=== PATIENT | female | born 1970 | race Caucasian/White ===

== ENCOUNTER 2017-01-01 22:15 | Inpatient (IN) | payer SELFPAY ==
[2017-01-01 22:38] VITALS: BMI 35.5
[2017-01-01] MEDS ORDERED: SODIUM CHLORIDE 1,000 ML IV STA (22:59)
[2017-01-01] MEDS ORDERED: PANTOPRAZOLE SODIUM 80 MG in SODIUM CHLORIDE 100 ML IVPB SCH (23:00)
--- NOTE | 2017-01-01 23:01 | PDOC ---
History of Present Illness - General Chief Complaint: Nausea/Vomiting Stated Complaint: VOMITING BLOOD Time Seen by Provider: 01/01/17 22:53 History Source: Patient, Family, Dry Wall Sprayer Used Exam Limitations: Language Barrier - History of Present Illness Travel History: No Initial Comments: 01/01/17 23:32 46yo Female patient vincentian speaking only w/ PmHx: Migraine presents to ED c/o abd pain, and vomiting blood. Patient states having epigastric abdominal pain x 1 week, which progressed to vomiting blood. Patient states she has been taking Butalbital/Acetaminophen for migraine h/a. Patient denies excessive alcohol or ibuprofen, or ASA use. She denies any other complaints. Timing/Duration: reports: getting worse Quality: reports: moderate Abdominal Pain Onset Location: reports: epigastric Pain Radiation: denies: no radiation, RUQ, LUQ, RLQ, LLQ, epigastric, periumbilical, flank, groin, scapula, shoulder, chest, back, other Activities at Onset: reports: no specific activity Treatment Prior to Arrive: worse with: analgesics, antacids, cold pack, heat, laxative, enema, other Aggravating Factors: worse with: None, Defecation, Eating, Emotional upset, Exertion, [place], Movement, Voiding, Change in position Alleviating Factors: worse with: None, Belching, Shallow Breathing, Defecation, Eating, Holding Breath, Passing Gas, Change in Position, Rest, Voiding, Vomiting Past History - Travel Traveled outside of the country in the last 30 days: No Close contact w/someone who was outside of country & ill: No - Past Medical History Allergies/Adverse Reactions: Allergies Allergy/AdvReac Type Severity Reaction Status Date / Time No Known Allergies Allergy Verified 01/01/17 22:29 Home Medications: Ambulatory Orders Butalbital/Acetaminophen [Butalbital-Acetaminophn 50-325] 1 tab PO TID 01/02/17 Other medical history: migrain - Psycho/Social/Smoking Cessation Hx Anxiety: No Suicidal Ideation: No Smoking History: Never smoked Have you smoked in the past 12 months: No Information on smoking cessation initiated: No Hx Alcohol Use: No Drug/Substance Use Hx: No Substance Use Type: None Abd/GI Specific PMHX - Complaint Specific PMHX Colitis: No Diverticulitis: No Gall Bladder Disease: No GERD: No Hepatitis: No Irritable Bowel Synd (IBS): No Pancreatitis: No GI Ulcer Disease: No Review of Systems - Review of Systems Able to Perform ROS?: Yes Is the patient limited Luxembourgish proficient: No Constitutional: No: Chills, Fever Respiratory: No: Cough, Shortness of Breath, Stridor, Wheezing, Hemoptysis Cardiac (ROS): No: Chest Pain, Lightheadedness, Palpitations ABD/GI: Yes: Nausea, Vomiting, Other (Hematemesis and Moderate Abdominal Pain). No: Constipated, Diarrhea, Rectal Bleeding : No: Burning, Dysuria, Flank Pain, Hematuria Musculoskeletal: No: Back Pain Integumentary: No: Bruising, Erythema, Rash Neurological: No: Headache, Seizure, Ataxia, Dizziness All Other Systems: Reviewed and Negative *Physical Exam - Vital Signs Last Vital Signs Temp Pulse Resp BP Pulse Ox 99.2 F 126 H 19 134/97 100 01/01/17 22:25 01/01/17 22:25 01/01/17 22:25 01/01/17 22:25 01/01/17 22:25 - Physical Exam General Appearance: Yes: Nourished, Appropriately Dressed, Apparent Distress, Moderate Distress. No: Mild Distress, Severe Distress Neck: positive: Trachea midline, Normal Thyroid, Supple. negative: Stridor, Lymphadenopathy (R), Lymphadenopathy (L), Tender lateral, Tender midline Respiratory/Chest: positive: Lungs Clear, Normal Breath Sounds. negative: Chest Tender, Respiratory Distress, Accessory Muscle Use, Labored Respiration, Rapid RR, Stridor, Wheezing Cardiovascular: positive: Regular Rhythm, Regular Rate Gastrointestinal/Abdominal: positive: Tender, Soft, Increased Bowel Sounds, Guarding, Rebound, Tenderness (Epigastric pain), Other (Large Abdomen.). negative: Distended Musculoskeletal: positive: Normal Inspection. negative: CVA Tenderness Extremity: positive: Normal Capillary Refill, Normal Inspection, Normal Range of Motion. negative: Pedal Edema, Swelling, Calf Tenderness, Erythema, Inflammation Integumentary: positive: Normal Color, Dry, Warm. 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
[2017-01-01] MEDS ORDERED: METOCLOPRAMIDE HCL INJECTION 10 MG/2 ML VIAL IVPB ONE (23:22)
[2017-01-01] MEDS ORDERED: morphine CARPU-JECT 4 MG/1 ML DISP.SYRIN IVPUSH ONE (23:23)
[2017-01-01] MEDS ORDERED: PANTOPRAZOLE SODIUM 100 ML IVPB ONE (23:23)
[2017-01-01 23:26] LABS: EOSINOPHIL 0.6 % (0-4.5); MCHC 32.6 g/dl (32.0-36.0); MEAN CELL VOLUME 85.9 fl (80-96); MEAN PLT VOLUME 7.7 fl (7.5-11.1); PLATELET COUNT 466 K/MM3 (134-434); RDW 17.8 % (11.6-15.6); WHITE BLOOD COUNT 12.8 K/mm3 (4.0-10.0)
[2017-01-01] MEDS ORDERED: morphine CARPU-JECT 4 MG/1 ML DISP.SYRIN ONE (23:32)
[2017-01-01] MEDS ORDERED: METOCLOPRAMIDE HCL INJECTION 10 MG/2 ML VIAL ONE (23:32)
[2017-01-01 23:37] LABS: INR 1.27 (0.82-1.09)
[2017-01-01 23:39] LABS: ACTIVATED PTT 33.4 SECONDS (26.9-34.4)
[2017-01-01 23:49] LABS: ALBUMIN 4.3 g/dl (3.4-5.0); ANION GAP 13 (8-16); BILIRUBIN,DIRECT 0.1 mg/dL (0.0-0.2); BILIRUBIN,TOTAL 0.5 mg/dL (0.2-1.0); CALCIUM 10.8 mg/dL (8.5-10.1); CO2 23 mmol/L (21-32); CREATININE 0.8 mg/dL (0.55-1.02); GLUCOSE,RANDOM 114 mg/dL (74-106); SGOT/AST 14 U/L (15-37); SGPT/ALT 18 U/L (12-78); TOT PROT 7.9 g/dl (6.4-8.2); TROPONIN I < 0.02 ng/ml (0.00-0.05)
[2017-01-01 23:50] LABS: ALK PHOS 178 U/L (45-117)
[2017-01-02] MEDS ORDERED: PANTOPRAZOLE SODIUM 80 MG in SODIUM CHLORIDE 100 ML IVPB ONE (00:02)
[2017-01-02] MEDS ORDERED: PANTOPRAZOLE SODIUM 40 MG VIAL ONE (02:10)
[2017-01-02] MEDS ORDERED: PANTOPRAZOLE SODIUM 100 ML IVPB ONE (02:10)
--- NOTE | 2017-01-02 03:28 | HP ---
CHIEF COMPLAINT: abd pain/vomiting blood PCP: Baldemar Foreman HISTORY OF PRESENT ILLNESS: This is a 46 year old female with a past medical history of migraines who presented to the emergency department with abdominal pain and vomiting "blood". Pt reports she has been having epigastric and supraumbilical pain x 3 days with vomiting. Hematemesis started 2 days ago; initially bright red then darker. Pt states the only medication she has been taking recently is fiorecet for her migraines. She denies taking fiorinal or any medication containing nSAIDS or ASA. She denies diarrhea or constipation. ER course was notable for: (1) H/H 11.7/35.8 (2) U/S c/w gallstones, CT w/ gallstones, possible acute cholecystitis (3) Recent Travel: pt denies PAST MEDICAL HISTORY: migraines ? heart murmur PAST SURGICAL HISTORY: x 2 Social History: Smoking: pt denies Alcohol: pt denies Drugs: pt denies Family History: father with DM, HTN, Heart disease-PPM grandmother and aunt had BrCA mother alive and well 2 children alive and well Allergies No Known Allergies Allergy (Verified 01/01/17 22:29) HOME MEDICATIONS: 3 Medication Instructions Recorded Butalbital/Acetaminophen 1 tab PO TID 01/02/17 [Butalbital-Acetaminophn 50-325] REVIEW OF SYSTEMS CONSTITUTIONAL: Absent: fever, chills, diaphoresis, generalized weakness, malaise, loss of appetite, weight change HEENT: Absent: rhinorrhea, nasal congestion, throat pain, throat swelling, difficulty swallowing, mouth swelling, ear pain, eye pain, visual changes CARDIOVASCULAR: Absent: chest pain, syncope, palpitations, irregular heart rate, lightheadedness , peripheral edema RESPIRATORY: Absent: cough, shortness of breath, dyspnea with exertion, orthopnea, wheezing, stridor, hemoptysis GASTROINTESTINAL: Present: abdominal pain, nausea, vomiting Absent: abdominal distension, diarrhea, constipation, melena, hematochezia GENITOURINARY: Absent: dysuria, frequency, urgency, hesitancy, hematuria, flank pain, genital pain MUSCULOSKELETAL: Absent: myalgia, arthralgia, joint swelling, back pain, neck pain SKIN: Absent: rash, itching, pallor HEMATOLOGIC/IMMUNOLOGIC: Absent: easy bleeding, easy bruising, lymphadenopathy, frequent infections ENDOCRINE: Absent: unexplained weight gain, unexplained weight loss, heat intolerance, cold intolerance NEUROLOGIC: Present: headache Absent: focal weakness or paresthesias, dizziness, unsteady gait, seizure, mental status changes, bladder or bowel incontinence PSYCHIATRIC: Absent: anxiety, depression, suicidal or homicidal ideation, hallucinations. PHYSICAL EXAMINATION Vital Signs - 24 hr 3 01/01/17 22:25 Temperature 99.2 F Pulse Rate 126 H Respiratory 19 Rate Blood Pressure 134/97 O2 Sat by Pulse 100 Oximetry (%) GENERAL: Awake, alert, and fully oriented, in no acute distress. HEAD: Normal with no signs of trauma. EYES: Pupils equal, round and reactive to light, extraocular movements intact, sclera anicteric, conjunctiva clear. No lid lag. EARS, NOSE, THROAT: Ears normal, nares patent, oropharynx clear without exudates. Moist mucous membranes. NECK: Normal range of motion, supple without lymphadenopathy, JVD, or masses. LUNGS: Breath sounds equal, clear to auscultation bilaterally. No wheezes, and no crackles. No accessory muscle use. HEART: Regular rate and rhythm, normal S1 and S2 without rub or gallop. + murmur 2/6, loudest 5th ICS/LMCL ABDOMEN: Soft, not distended, normoactive bowel sounds, no guarding, no rebound , no masses. No hepatomegaly or splenomegaly. Tender to palpation epigastric region MUSCULOSKELETAL: Normal range of motion at all joints. No bony deformities or tenderness. No CVA tenderness. UPPER EXTREMITIES: 2+ pulses, warm, well-perfused. No cyanosis. No clubbing. No peripheral edema. LOWER EXTREMITIES: 2+ pulses, warm, well-perfused. No calf tenderness. No peripheral edema. NEUROLOGICAL: Cranial nerves II-XII intact. Normal speech. Normal gait. PSYCHIATRIC: Cooperative. Good eye contact. Appropriate mood and affect. SKIN: Warm, dry, normal turgor, no rashes or lesions noted, normal capillary refill. Laboratory Results - last 24 hr 3 01/01/17 01/01/17 01/01/17 01/02/17 23:00 23:11 23:11 00:05 WBC 12.8 H RBC 4.16 Hgb 11.7 Hct 35.8 MCV 85.9 MCHC 32.6 RDW 17.8 H Plt Count 466 H MPV 7.7 Neutrophils % 70.0 Lymphocytes % 22.1 Monocytes % 6.3 Eosinophils % 0.6 Basophils % 1.0 INR 1.27 H PTT (Actin FS) 33.4 Sodium 141 Potassium 3.3 L Chloride 105 Carbon Dioxide 23 Anion Gap 13 BUN 9 Creatinine 0.8 Random Glucose 114 H Lactic Acid 1.7 Calcium 10.8 H Total Bilirubin 0.5 Direct Bilirubin 0.1 AST 14 L ALT 18 Alkaline Phosphatase 178 H Creatine Kinase 83 Troponin I < 0.02 Total Protein 7.9 Albumin 4.3 Serum , Qual Negative Blood Type A POSITIVE Antibody Screen Negative Radiology Results Abdominal sonogram Images: 60 Clinical indication: Epigastric pain. This is a preliminary report by imaging person investigator Findings: The pancreas has a normal appearance and echotexture. The liver has a normal appearance and measures 16.4 cm in length. Hepatopetal flow is demonstrated in the main portal vein. Cholelithiasis is noted. There is no mural thickening or pericholecystic fluid. The right kidney has a normal appearance and echotexture measures 9.5 cm in length. No parenchymal mass, shadowing calculus or hydronephrosis is seen. Impression: Cholelithiasis. THIS DOCUMENT HAS BEEN ELECTRONICALLY SIGNED [place] M.D. 01/02/2017 00:[address] head Images: 171 Clinical indication: Severe headache. This is a preliminary report by imaging person investigator Findings: Multiple axial images were obtained of the brain without contrast. There is no mass-effect, midline shift or hemorrhage. There is no intra-axial or extra-axial fluid collection. The visualized portions of the paranasal sinuses are clear. The middle ear cavities and mastoids are clear. No calvarial fracture seen. Impression: No mass effect or intracranial hemorrhage. THIS DOCUMENT HAS BEEN ELECTRONICALLY SIGNED [place] Valentine M.D. 01/02/2017 02:[address] abdomen pelvis Images: 429 Clinical indication: Abdominal pain for 3 days. This is a preliminary report by imaging person investigator Findings: Pleural lipomatosis noted in the right posterior thorax. The lung bases are clear. The liver has a normal appearance. The gallbladder is distended to 4.8 cm in diameter. Cholelithiasis is noted. No pericholecystic inflammatory changes are seen. The spleen and pancreas have a normal appearance. The adrenal glands are unremarkable. A right renal hypodensity is noted in the lower pole. The kidneys otherwise enhance symmetrically. There is no evidence of urinary tract obstruction. The gastrointestinal tract does not appear obstructed. No thickened or dilated bowel is seen. The appendix has a normal appearance. There is no mesenteric infiltration. The uterus is anteverted. The right adnexa is unremarkable. An ovoid cystic hypodensity in the left adnexa demonstrates soft tissue attenuation likely a complex/ hemorrhagic cyst. The urinary bladder is nondistended. No abdominal or pelvic adenopathy is seen. No lytic or blastic destructive osseous lesions are seen. Impression: Markedly distended gallbladder. Cholelithiasis. Correlate for tenderness. Early cholecystitis can have this appearance. No other inflammatory process identified in the abdomen or pelvis. No abdominal mass, adenopathy or collection seen. THIS DOCUMENT HAS BEEN ELECTRONICALLY SIGNED [place] M.D. 01/02/2017 02:49 EST ASSESSMENT/PLAN: 46yF with PMH migraines and heart murmur presented to the ED with abdominal pain and hematemesis. She has been admitted for further evaluation. Hematemesis - Hgb 11.7, no previous baseline in system, cont to trend - GI consult - protonix IV daily - vomiting stopped s/p reglan - NPO for now, trial clears tomorrow if improved cholelithiasis - NPO for now, if pain improving, outpatient surgical workup, if not, inpatient consult - trend WBC DVT PPX - heparin deferred due to hematemesis FEN - NS @ 100cc/hr - potassium repleted in ED, repeat in am, check mag and phos - NPO for now, may have ice chips Dispo: Pt currently requires inpatient management of her emergent condition. Visit type - Emergency Visit Emergency Visit: Yes ED Registration Date: 01/01/17 Care time: The patient presented to the Emergency Department on the above date and was hospitalized for further evaluation of their emergent condition. - New Patient This patient is new to me today: Yes Date on this admission: 01/02/17 - Critical Care Critical Care patient: No
[2017-01-02] MEDS ORDERED: ONDANSETRON 4 MG/2 ML VIAL IVPB PRN (03:29)
[2017-01-02] MEDS ORDERED: SODIUM CHLORIDE 1,000 ML IV STA (03:55)
[2017-01-02] MEDS ORDERED: KCL 10 MEQ IVPB 100 ML IVPB SCH (04:00)
[2017-01-02] MEDS ORDERED: KCL 10 MEQ IVPB 100 ML IVPB ONE (04:02)
[2017-01-02] MEDS: morphine CARPU-JECT 4 MG/1 ML DISP.SYRIN IVPUSH PRN ×2 (05:57→10:16)
[2017-01-02] MEDS: SODIUM CHLORIDE 1,000 ML IV SCH ×2 (05:58→16:00)
[2017-01-02 09:02] LABS: BASOPHIL 0.6 % (0-2.0); EOSINOPHIL 1.9 % (0-4.5); MCH 28.8 pg (25.7-33.7); MCHC 32.9 g/dl (32.0-36.0); MEAN CELL VOLUME 87.6 fl (80-96); MEAN PLT VOLUME 7.5 fl (7.5-11.1); NEUTROPHILS 55.4 % (42.8-82.8); PLATELET COUNT 359 K/MM3 (134-434); RDW 18.5 % (11.6-15.6); WHITE BLOOD COUNT 11.1 K/mm3 (4.0-10.0)
[2017-01-02 09:27] LABS: ALBUMIN 3.5 g/dl (3.4-5.0); ANION GAP 9 (8-16); CALCIUM 9.9 mg/dL (8.5-10.1); CO2 25 mmol/L (21-32); CREATININE 0.6 mg/dL (0.55-1.02); GLUCOSE,RANDOM 82 mg/dL (74-106); PHOSPHOROUS 1.7 mg/dL (2.5-4.9); SGOT/AST 14 U/L (15-37); SGPT/ALT 15 U/L (12-78); TOT PROT 6.6 g/dl (6.4-8.2)
[2017-01-02 09:28] LABS: ALK PHOS 149 U/L (45-117); BILIRUBIN,TOTAL 0.5 mg/dL (0.2-1.0)
[2017-01-02] MEDS ORDERED: PANTOPRAZOLE SODIUM 40 MG in SODIUM CHLORIDE 100 ML IVPB SCH (10:00)
[2017-01-02] MEDS: PANTOPRAZOLE SODIUM 40 MG/100 ML PRE-DOCKED IVPB SCH (10:18)
[2017-01-02] MEDS ORDERED: POTASSIUM CHLORIDE TABS 20 MEQ TABLET.ER (FP) PO ONE (14:30)
[2017-01-02] MEDS ORDERED: POTASSIUM CHLORIDE TABS 20 MEQ TABLET.ER (FP) PO SCH (14:30)
--- NOTE | 2017-01-02 14:54 | EKG ---
Test Reason : Blood Pressure : / mmHG Vent. Rate : 109 BPM Atrial Rate : 109 BPM P-R Int : 132 ms QRS Dur : 076 ms QT Int : 328 ms P-R-T Axes : 064 053 041 degrees QTc Int : 441 ms POOR DATA QUALITY, INTERPRETATION MAY BE ADVERSELY AFFECTED SINUS TACHYCARDIA POSSIBLE LEFT ATRIAL ENLARGEMENT LEFT VENTRICULAR HYPERTROPHY ABNORMAL ECG NO PREVIOUS ECGS AVAILABLE Confirmed by TIM DAVIS, SAM ([id number]) on 01/02/2017 2:53:37 PM Referred By: Confirmed By:SAM DUMONT MD
[2017-01-02] MEDS: NAPH,MB-DB/K PH,MBDB POWDER PACKET PO SCH ×2 (15:20→21:12)
--- NOTE | 2017-01-02 15:29 | CON.GI ---
Consult Consult Specialty:: GI Referred by:: Dr Shanks Reason for Consultation:: Hematemesis - History of Present Illness Chief Complaint: hematemesis History of Present Illness: 46 F wiht h/o migraine taking Butalbitol/acetaminophen on a regular basis, now admitted with a h/o abdominal pain for 1 week culminating in hematemesis fror 2 days prior to the day of admission. She currently has a severe CHERRY. 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 ...: No - Alcohol/Substance Use Hx Alcohol Use: No - Smoking History Smoking history: Never smoked Have you smoked in the past 12 months: No Home Medications - Allergies Allergies/Adverse Reactions: Allergies Allergy/AdvReac Type Severity Reaction Status Date / Time No Known Allergies Allergy Verified 01/01/17 22:29 - Home Medications Home Medications: Ambulatory Orders Butalbital/Acetaminophen [Butalbital-Acetaminophn 50-325] 1 tab PO TID 01/02/17 Physical Exam-GI Vital Signs: Vital Signs Temperature 98.1 F 01/02/17 10:00 Pulse Rate 95 H 01/02/17 10:00 Respiratory Rate 16 01/02/17 10:00 Blood Pressure 142/67 01/02/17 10:00 O2 Sat by Pulse Oximetry (%) 100 01/02/17 10:00 Constitutional: Yes: Well Nourished, Moderate Distress (CHERRY) HENT: Yes: Normocephalic Cardiovascular: Yes: Regular Rate and Rhythm Respiratory: Yes: CTA Bilaterally Gastrointestinal Inspection: Yes: WNL ...Auscultate: Yes: Normoactive Bowel Sounds ...Palpate: Yes: Soft, Tenderness, Tenderness, Epigastium ...Percussion: Yes: Dullness Labs: CBC, BMP 01/02/17 07:45 01/02/17 07:45 INR, PTT INR 1.27 (0.82-1.09) H 01/01/17 23:11 Hepatic Panel Total Bilirubin 0.5 mg/dL (0.2-1.0) 01/02/17 07:45 Direct Bilirubin 0.1 mg/dL (0.0-0.2) 01/01/17 23:11 AST 14 U/L (15-37) L 01/02/17 07:45 ALT 15 U/L (12-78) 01/02/17 07:45 Alkaline Phosphatase 149 U/L (45-117) H 01/02/17 07:45 Albumin 3.5 g/dl (3.4-5.0) 01/02/17 07:45 Imaging - Results Ultrasound: Report Reviewed (cholelithiasis found incidentally) Assessment/Plan 46 F with above history now with UGIB. No bleeding today. Rec: IV protonix Zofran prn Clear liquid diet Re-check INR. Mild coagulopathy-unclear etiology d/c narcotics-can induce N/V Consider neuro consult for better mgmt of migraines EGD if bleeding resumes. Likely Maryana-Patel tear. These minor injuries usually heal uneventfully once vomiting stops
[2017-01-02] MEDS: ACETAMINOPHEN/CAFFEINE/BUTALBITAL 1 TAB PO PRN (21:11)
[2017-01-02 21:38] LABS: URINE APPEARANCE CLEAR; URINE BILIRUBIN NEGATIVE (NEGATIVE); URINE COLOR LTYELLOW; URINE GLUCOSE (UA) NEGATIVE (NEGATIVE); URINE KETONE 2+ (NEGATIVE); URINE LEUK ESTERASE NEGATIVE (NEGATIVE); URINE NITRITE NEGATIVE (NEGATIVE); URINE PROTEIN NEGATIVE (NEGATIVE); URINE UROBILINOGEN NEGATIVE E.U./dl (0.2-1.0)
[2017-01-02 21:44] LABS: URINE BLOOD 2+ (NEGATIVE)
[2017-01-02 21:45] LABS: URINE MUCUS RARE; URINE RBC 13 /hpf (0-3); URINE WBC 7 /hpf (3-5)
[2017-01-03] MEDS: SODIUM CHLORIDE 1,000 ML IV SCH (06:08)
[2017-01-03] MEDS: NAPH,MB-DB/K PH,MBDB POWDER PACKET PO SCH ×2 (06:09→13:34)
[2017-01-03] MEDS: ACETAMINOPHEN/CAFFEINE/BUTALBITAL 1 TAB PO PRN (06:15)
[2017-01-03 07:49] LABS: INR 1.19 (0.82-1.09); PROTHROMBIN TIME (PATIENT) 13.1 SEC (9.98-11.88)
[2017-01-03 07:55] LABS: BASOPHIL 0.7 % (0-2.0); EOSINOPHIL 3.2 % (0-4.5); MCHC 32.8 g/dl (32.0-36.0); MEAN CELL VOLUME 88.2 fl (80-96); MEAN PLT VOLUME 7.5 fl (7.5-11.1); PLATELET COUNT 395 K/MM3 (134-434); RDW 18.6 % (11.6-15.6); WHITE BLOOD COUNT 7.5 K/mm3 (4.0-10.0)
[2017-01-03 08:01] LABS: ALBUMIN 3.7 g/dl (3.4-5.0); ANION GAP 8 (8-16); CALCIUM 10.5 mg/dL (8.5-10.1); CO2 27 mmol/L (21-32); CREATININE 0.7 mg/dL (0.55-1.02); GLUCOSE,RANDOM 99 mg/dL (74-106); MAGNESIUM 1.7 mg/dL (1.8-2.4); SGOT/AST 16 U/L (15-37); SGPT/ALT 17 U/L (12-78)
[2017-01-03 08:03] LABS: ALK PHOS 176 U/L (45-117); BILIRUBIN,TOTAL 0.3 mg/dL (0.2-1.0); TOT PROT 7.6 g/dl (6.4-8.2)
[2017-01-03] MEDS ORDERED: MAGNESIUM SULF 50% (8.12 MEQ/2 ML-1 GM VIAL) IVPB ONE (08:30)
[2017-01-03] MEDS: POTASSIUM CHLORIDE TABS 20 MEQ TABLET.ER (FP) PO SCH ×2 (08:35→13:33)
[2017-01-03] MEDS: PANTOPRAZOLE SODIUM 40 MG/100 ML PRE-DOCKED IVPB SCH (09:20)
[2017-01-03 13:02] VITALS: BP 134/81; PULSE 84; TEMP 97.7
--- NOTE | 2017-01-03 14:15 | DS ---
Physical Exam: SUBJECTIVE: Patient seen and examined at bedside. Still feeling slightly nauseous. Vomited small amount of silver radha, no blood. Has had no bloody vomitus since admission. Has no abdominal pain. Has mild headache. Fioricet has been helpful. OBJECTIVE: Vital Signs Period Temp Pulse Resp BP Sys/Briggs Pulse Ox Last 24 Hr 97.7 F-98.7 F 84-101 18-18 132-145/57-86 100-100 PHYSICAL EXAM GENERAL: The patient is awake, alert, and fully oriented, in no acute distress. LUNGS: Breath sounds equal, clear to auscultation bilaterally, no wheezes, no crackles, no accessory muscle use. HEART: Regular rate and rhythm, S1, S2 without murmur, rub or gallop. ABDOMEN: Soft, nontender, nondistended, normoactive bowel sounds, no guarding, no rebound, no hepatosplenomegaly, no masses. EXTREMITIES: 2+ pulses, warm, well-perfused, no edema. NEUROLOGICAL: Cranial nerves II through XII grossly intact. Normal speech, gait not observed. Laboratory Results - last 24 hr 01/02/17 01/03/17 01/03/17 20:40 06:20 06:20 WBC 7.5 D RBC 3.89 Hgb 11.3 D Hct 34.4 MCV 88.2 MCHC 32.8 RDW 18.6 H Plt Count 395 MPV 7.5 Neutrophils % 47.0 Lymphocytes % 43.2 H D Monocytes % 5.9 Eosinophils % 3.2 Basophils % 0.7 INR 1.19 H Sodium Potassium Chloride Carbon Dioxide Anion Gap BUN Creatinine Creat Clearance w eGFR Random Glucose Calcium Magnesium Total Bilirubin AST ALT Alkaline Phosphatase Total Protein Albumin Urine Color Ltyellow Urine Appearance Clear Urine pH 6.0 Ur Specific [place] 1.025 Urine Protein Negative Urine Glucose (UA) Negative Urine Ketones 2+ H Urine Blood 2+ H Urine Nitrite Negative Urine Bilirubin Negative Urine Urobilinogen Negative Ur Leukocyte Esterase Negative Urine RBC 13 Urine WBC 7 Ur Epithelial Cells Rare Urine Mucus Rare Urine HCG, Qual Negative 01/03/17 06:20 WBC RBC Hgb Hct MCV MCHC RDW Plt Count MPV Neutrophils % Lymphocytes % Monocytes % Eosinophils % Basophils % INR Sodium 139 Potassium 3.4 L Chloride 104 Carbon Dioxide 27 Anion Gap 8 BUN 2 L* D Creatinine 0.7 Creat Clearance w eGFR > 60 Random Glucose 99 D Calcium 10.5 H Magnesium 1.7 L Total Bilirubin 0.3 D AST 16 ALT 17 Alkaline Phosphatase 176 H Total Protein 7.6 Albumin 3.7 Urine Color Urine Appearance Urine pH Ur Specific [place] Urine Protein Urine Glucose (UA) Urine Ketones Urine Blood Urine Nitrite Urine Bilirubin Urine Urobilinogen Ur Leukocyte Esterase Urine RBC Urine WBC Ur Epithelial Cells Urine Mucus Urine HCG, Qual HOSPITAL COURSE: Date of Admission:01/02/17 Date of Discharge: 01/03/17 Patient is a 46 year-old woman with a significant PMH of migraines for which she is followed by a neurologist at [facility] and takes fioricet. She presented to the emergency department with a complaint of one week of abdominal pain and vomiting, with episodes of bloody vomit x 2 days. Patient was treated with IV fluids, Zofran for nausea and vomiting, and fioricet for headache with clinical improvement of all symptoms. There were no episodes of bloody vomit during the hospital stay. Patient sent home with prescriptions for Zofran and fioricet and it is recommended she follow up with her neurologist for migraine management. Minutes to complete discharge: 35 Discharge Summary Reason For Visit: UPPER GI BLEED Current Active Problems Upper GI bleed (Acute) Condition: Fair - Instructions Diet, Activity, Other Instructions: Two prescriptions have been sent to your pharmacy, one is for Fioricet (for headaches) and one is for Zofran (nausea). Take these medications as prescribed. It is recommended you follow up with your neurologist regarding your chronic migraine headaches. Return to the emergency department for any new or worsening symptoms. Referrals: Cory Shore MD [Staff Physician] - Disposition: HOME - Home Medications Comprehensive Discharge Medication List: Ambulatory Orders Butalbital/Acetaminophen [Butalbital-Acetaminophn 50-325] 1 tab PO TID 01/02/17 This patient is new to me today: Yes Date on this admission: 01/03/17 Emergency Visit: Yes ED Registration Date: 01/02/17 Care time: The patient presented to the Emergency Department on the above date and was hospitalized for further evaluation of their emergent condition. Critical Care patient: No - Discharge Referral Referred to [facility] Med P.C.: No
== END 2017-01-03 15:06 | disposition home or self-care (01) | DRG 253 ==
LOC: JER 22:15 → SUPCPDRO 22:15 → JERBED 01-02 03:18 → J5S 01-02 05:31
PROVIDERS: ADMIT Internal Medicine; ATTEND Nurse Practitioner Acute Care
DX: K92.2 Gastrointestinal hemorrhage, unspecified (principal); G43.909 Migraine, unspecified, not intractable, without status migrainosus; R10.13 Epigastric pain; K80.20 Calculus of gallbladder without cholecystitis without obstruction
CPT/HCPCS: 36415; 70450-TC; 74177-TC; 76705-TC; 80048; 80053; 80076; 81003; 81015; 82550; 83605; 83735; 84100; 84484; 84703; 85025; 85610; 85730; 86850; 86900; 86901; 93005; 93010; 99284-25

== ENCOUNTER 2017-04-02 01:18 | Inpatient (IN) | payer MEDICARE ==
--- NOTE | 2017-04-02 01:59 | PDOC ---
History of Present Illness - General History Source: Patient Exam Limitations: No Limitations - History of Present Illness Initial Comments: 04/02/17 02:09 The patient is a 46 year old female, with no significant past medical history, who presents to the emergency department complaining of nausea and vomiting since yesterday morning. The patient reports her vomiting have been persistent nonbloody/nonbilious episodes. The patient reports she did not eat all day yesterday. She reports associated diffuse abdominal pain. She reports her LMP was in February. She denies any associated diarrhea or constipation. She denies any dysuria, hematuria, frequency, or urgency. She denies any fever, chills, headache, or dizziness. She denies any recent travel or sick contacts. Allergies: NKDA Past Surgical History: Tubal ligation Social History: Nonsmoker. No ETOH or recreational drug use. <Isaac Garland - Last Filed: 04/02/17 05:16> - General History Source: Patient <BinaraCarlitos - Last Filed: 04/06/17 19:14> - General Chief Complaint: Nausea/Vomiting Stated Complaint: VOMITING Time Seen by Provider: 04/02/17 01:58 Past History <Isaac Garland - Last Filed: 04/02/17 05:16> - Suicide/Smoking/Psychosocial Hx Smoking History: Never smoked Have you smoked in the past 12 months: No Hx Alcohol Use: No Drug/Substance Use Hx: No Substance Use Type: None <Carlitos Ibanez - Last Filed: 04/06/17 19:14> - Past Medical History Allergies/Adverse Reactions: Allergies Allergy/AdvReac Type Severity Reaction Status Date / Time No Known Allergies Allergy Verified 04/02/17 02:03 Home Medications: Ambulatory Orders Pantoprazole Sodium [Protonix -] 40 mg PO DAILY #30 cap 04/03/17 Review of Systems - Review of Systems Able to Perform ROS?: Yes Comments:: 04/02/17 02:09 CONSTITUTIONAL: Absent: fever, no chills, no fatigue EYES: Absent: visual changes ENT: Absent: ear pain, no sore throat CARDIOVASCULAR: Absent: chest pain, no palpitations RESPIRATORY: Absent: cough, no SOB GI: Present: abdominal pain, nausea, vomiting Absent: no constipation, no diarrhea GENITOURINARY: Absent: dysuria, no frequency, no hematuria MUSCULOSKELETAL: Absent: back pain, no arthralgia, no myalgia SKIN: Absent: rash NEURO: Absent: headache ENDOCRINE: Present: Loss of appetite <Isaac Garland - Last Filed: 04/02/17 05:16> *Physical Exam - Vital Signs Last Vital Signs Temp Pulse Resp BP Pulse Ox 98.5 F 114 H 20 119/75 97 04/02/17 01:56 04/02/17 01:56 04/02/17 01:56 04/02/17 01:56 04/02/17 01:56 - Physical Exam Comments: 04/02/17 02:09 GENERAL: Well-appearing, well-nourished. Mild distress. HEENT: Normocephalic, atraumatic. PERRL, EOM intact. CARDIOVASCULAR: Normal S1, S2. Regular rate and rhythm. PULMONARY: Clear to auscultation bilaterally. ABDOMEN: Mild diffuse tenderness. Soft, non-distended. EXTREMITIES: Normal ROM in all four extremities. No gross deformities. SKIN: Warm, dry. No rash NEUROLOGICAL: No focal neurological deficits. <Isaac Garland - Last Filed: 04/02/17 05:16> ED Treatment Course - LABORATORY CBC & Chemistry Diagram: 04/02/17 02:34 04/02/17 02:34 - RADIOLOGY Radiograph Interpretation: 04/02/17 05:15 EXAM: CT Abdomen and Pelvis INTERPRETED BY: Dr. Ureña REVIEWED BY: Dr. Ibanez IMPRESSION: No acute pathology. Small hiatal hernia. Shallow ventral hernia into which bowel minimally protrudes. Gallbladder is distended and inflamed. <Isaac Garland - Last Filed: 04/02/17 05:16> - LABORATORY CBC & Chemistry Diagram: 04/03/17 07:00 04/03/17 07:00 <Carlitos Ibanez - Last Filed: 04/06/17 19:14> Medical Decision Making - Medical Decision Making 04/06/17 19:14 Dr. Ibanez: The scribe's documentation has been prepared under my direction and personally reviewed by me in its entirery. I confirm that the note above accurately reflects all work, treatment, procedures, and medical decision making performed by me.S <Carlitos Ibanez - Last Filed: 04/06/17 19:14> *DC/Admit/Observation/Transfer - Attestations Scribe Attestion: 04/02/17 02:10 Documentation prepared by Isaac Garland, acting as medical hospital sales for Carlitos Ibanez DO. <Isaac Garland - Last Filed: 04/02/17 05:16> <Carlitos Ibanez - Last Filed: 04/06/17 19:14> Diagnosis at time of Disposition: Cholecystitis - Discharge Dispostion Disposition: HOME Condition at time of disposition: Stable - Prescriptions
[2017-04-02] MEDS ORDERED: ONDANSETRON 4 MG/2 ML VIAL IVPUSH STA (02:03)
[2017-04-02] MEDS ORDERED: FAMOTIDINE 20 MG/50 ML IVPB 20 MG in PREMIX 50 IVPB ONE (02:03)
[2017-04-02] MEDS ORDERED: SODIUM CHLORIDE 1,000 ML IV STA (02:03)
[2017-04-02] MEDS ORDERED: FAMOTIDINE 20 MG/50 ML IVPB 50 ML IVPB ONE (02:14)
[2017-04-02] MEDS ORDERED: ONDANSETRON 4 MG/2 ML VIAL ONE (02:14)
[2017-04-02 02:46] LABS: BASOPHIL 0.6 % (0-2.0); MCH 28.2 pg (25.7-33.7); MCHC 32.8 g/dl (32.0-36.0); MEAN PLT VOLUME 7.6 fl (7.5-11.1); NEUTROPHILS 76.5 % (42.8-82.8); PLATELET COUNT 573 K/MM3 (134-434); RDW 19.2 % (11.6-15.6); WHITE BLOOD COUNT 18.6 K/mm3 (4.0-10.0)
[2017-04-02 02:47] LABS: URINE APPEARANCE SLCLOUDY; URINE BILIRUBIN NEGATIVE (NEGATIVE); URINE BLOOD 2+ (NEGATIVE); URINE COLOR YELLOW; URINE GLUCOSE (UA) NEGATIVE (NEGATIVE); URINE KETONE 1+ (NEGATIVE); URINE LEUK ESTERASE NEGATIVE (NEGATIVE); URINE NITRITE NEGATIVE (NEGATIVE); URINE UROBILINOGEN NEGATIVE mg/dL (0.2-1.0)
[2017-04-02 02:51] LABS: URINE PROTEIN 2+ (NEGATIVE)
[2017-04-02 02:53] LABS: URINE BACTERIA FEW /hpf (NONE SEEN); URINE HYALINE CAST 5 /lpf; URINE MUCUS MANY; URINE RBC 18 /hpf (0-3); URINE WBC 10 /hpf (3-5)
[2017-04-02 03:01] LABS: INR 1.24 (0.82-1.09); PROTHROMBIN TIME (PATIENT) 13.7 SEC (9.98-11.88)
[2017-04-02 03:11] LABS: ALBUMIN 4.1 g/dl (3.4-5.0); ALK PHOS 183 U/L (45-117); ANION GAP 9 (8-16); BILIRUBIN,TOTAL 0.4 mg/dL (0.2-1.0); CALCIUM 11.2 mg/dL (8.5-10.1); CO2 30 mmol/L (21-32); CREATININE 0.9 mg/dL (0.55-1.02); GLUCOSE,RANDOM 114 mg/dL (74-106); SGOT/AST 12 U/L (15-37); SGPT/ALT 20 U/L (12-78); TOT PROT 8.1 g/dl (6.4-8.2)
[2017-04-02] MEDS ORDERED: morphine CARPU-JECT 2 MG/1 ML DISP.SYRIN IVPUSH ONE ×2 (03:16→05:17)
[2017-04-02] MEDS ORDERED: morphine CARPU-JECT 4 MG/1 ML DISP.SYRIN ONE ×3 (03:38→09:38)
[2017-04-02] MEDS ORDERED: KETOROLAC TROMETHAMINE 30 MG/1 ML VIAL IVPUSH ONE (04:47)
[2017-04-02] MEDS ORDERED: CEFTRIAXONE 50 ML ONE (04:59)
[2017-04-02] MEDS ORDERED: KETOROLAC TROMETHAMINE 30 MG/1 ML VIAL ONE (04:59)
--- NOTE | 2017-04-02 08:32 | PDOC ---
*Physical Exam - Vital Signs Last Vital Signs Temp Pulse Resp BP Pulse Ox 98.3 F 96 H 17 114/75 100 04/02/17 05:26 04/02/17 05:26 04/02/17 05:26 04/02/17 05:26 04/02/17 05:26 ED Treatment Course - LABORATORY CBC & Chemistry Diagram: 04/02/17 02:34 04/02/17 02:34 - ADDITIONAL ORDERS Additional order review: Laboratory Results 04/02/17 04/02/17 04/02/17 02:34 02:34 02:34 PT with INR INR Sodium 140 Potassium 3.9 Chloride 101 Carbon Dioxide 30 Anion Gap 9 BUN 12 D Creatinine 0.9 D Creat Clearance w eGFR > 60 Random Glucose 114 H Calcium 11.2 H Magnesium 2.0 Total Bilirubin 0.4 D AST 12 L D ALT 20 Alkaline Phosphatase 183 H Total Protein 8.1 Albumin 4.1 Lipase 106 Serum , Qual Negative Urine Color Yellow Urine Appearance Slcloudy Urine pH 5.0 Urine Protein 2+ H Urine Glucose (UA) Negative Urine Ketones 1+ H Urine Blood 2+ H Urine Nitrite Negative Urine Bilirubin Negative Urine Urobilinogen Negative Urine RBC 18 Urine WBC 10 Ur Epithelial Cells Moderate Urine Bacteria Few Hyaline Casts 5 Urine Mucus Many 04/02/17 02:34 PT with INR 13.70 H INR 1.24 H Sodium Potassium Chloride Carbon Dioxide Anion Gap BUN Creatinine Creat Clearance w eGFR Random Glucose Calcium Magnesium Total Bilirubin AST ALT Alkaline Phosphatase Total Protein Albumin Lipase Serum , Qual Urine Color Urine Appearance Urine pH Urine Protein Urine Glucose (UA) Urine Ketones Urine Blood Urine Nitrite Urine Bilirubin Urine Urobilinogen Urine RBC Urine WBC Ur Epithelial Cells Urine Bacteria Hyaline Casts Urine Mucus 04/02/17 02:34 RBC 4.08 MCV 86.0 MCHC 32.8 RDW 19.2 H MPV 7.6 Neutrophils % 76.5 D Lymphocytes % 17.9 D Monocytes % 5.0 Eosinophils % 0.0 D Basophils % 0.6 - Medications Given in the ED: ED Medications Discontinued Medications Generic Name Dose Route Start Last Admin Trade Name Freq PRN Reason Stop Dose Admin Ceftriaxone Sodium 1,000 mg 04/02/17 04:44 04/02/17 05:07 Rocephin - IVPB 04/02/17 04:45 1,000 mg ONCE ONE Administration Famotidine/Sodium Chloride 20 50 mls @ 100 mls/hr 04/02/17 02:03 04/02/17 02:38 mg/ Miscellaneous IVPB 04/02/17 02:32 100 mls/hr ONCE ONE Administration Sodium Chloride 1,000 mls @ 1,000 mls/hr 04/02/17 02:03 04/02/17 02:37 Normal Saline - IV 04/02/17 03:02 1,000 mls/hr ASDIR STA Administration Ketorolac Tromethamine 30 mg 04/02/17 04:47 04/02/17 05:09 Toradol Injection - IVPUSH 04/02/17 04:48 30 mg ONCE ONE Administration Morphine Sulfate 8 mg 04/02/17 03:16 04/02/17 03:41 Morphine Injection - IVPUSH 04/02/17 03:17 8 mg ONCE ONE Administration Morphine Sulfate 8 mg 04/02/17 05:17 04/02/17 05:25 Morphine Injection - IVPUSH 04/02/17 05:18 8 mg ONCE ONE Administration Ondansetron HCl 4 mg 04/02/17 02:03 04/02/17 02:38 Zofran Injection IVPUSH 04/02/17 02:04 4 mg ONCE STA Administration Medical Decision Making - Medical Decision Making 04/02/17 08:32 Patient signed out to me. Care taken over. 04/02/17 09:38 U/s reveals cholelithiasis with no evidence of acute cholecystitis. Patient has + castro's sign. Surgery called. Spoke with Dr. Evans. He will not be able to perform surgery until Wednesday. Dr. Perry called. Awaiting call back 04/02/17 10:[address] Perry. Patient to be admitted under medicine. Call placed to hospitalist. Awaiting call back 04/02/17 10:54 Spoke with hospitalist. Patient to be admitted to med-surg *DC/Admit/Observation/Transfer Diagnosis at time of Disposition: Cholecystitis - Discharge Dispostion Condition at time of disposition: Fair Admit: Yes
[2017-04-02] MEDS ORDERED: morphine CARPU-JECT 4 MG/1 ML DISP.SYRIN IVPUSH ONE (09:35)
--- NOTE | 2017-04-02 11:59 | CON.GI ---
Consult Consult Specialty:: GI Reason for Consultation:: Abdominal pain - History of Present Illness Chief Complaint: acute onset epigastric pain of 2 days History of Present Illness: Epigastric pain of 2 days duration. Acute onset, 10 with chills, vomiting and leukocytosis. Negative test. Negative UA for UTI. Normal lipase, normal transaminases, elevated ALP. CT A w/o showed enlarged GB, normal CBD. RUQ US showed cholelithiasis. No signs of inflammation, or obstruction on both imaging studies.The pain is not clearly aggravated by eating. No alleviating factors. Epigastric pain on swallowing present. No dysphagia, odynophagia, diarrhea, melena, hematemesis. Had a similar episode in January of this year. Denies chronic ETOH, NSAIDs. No history of PUD. - History Source History Provided By: Patient, Family Member Limitations to Obtaining History: Language Barrier (son at bedside translating) - Past Medical History [employer]: Yes: Migraine Gastrointestinal: No: Ascites, Constipation, Crohn's Disease, Diverticulitis, Diverticulosis, Esophageal Varices, Gastritis, GERD, GI Bleed, Hemorrhoids, Hiatal Hernia, Inflamatory Bowel Disease, Irritable Bowel Disease, Pancreatitis , Peptic Ulcer Disease Hepatobiliary: No: Cirrhosis, Cholelithiasis, Hepatitis B, Hepatitis C - Past Surgical History Past Surgical History: Yes: None - Alcohol/Substance Use Hx Alcohol Use: No - Smoking History Smoking history: Never smoked Have you smoked in the past 12 months: No Home Medications - Allergies Allergies/Adverse Reactions: Allergies Allergy/AdvReac Type Severity Reaction Status Date / Time No Known Allergies Allergy Verified 04/02/17 02:03 - Home Medications Home Medications: Ambulatory Orders NK [No Known Home Medication] 04/02/17 Family Disease History - Family Disease History Family History: Unremarkable Review of Systems - Review of Systems Constitutional: reports: Chills. denies: Night Sweats, Unintentional Wgt. Loss , Weakness Eyes: reports: No Symptoms HENT: denies: Difficult Swallowing Neck: reports: No Symptoms Cardiovascular: denies: Chest Pain, Shortness of Breath Respiratory: denies: No Symptoms Gastrointestinal: reports: Abdominal Pain, Indigestion, Nausea, Vomiting, Other (see hpi). denies: Bloating, Constipation, Diarrhea, Dysphagia, Melena, Rectal Bleeding, Vomiting Blood Genitourinary: denies: Burning, Dysuria, Flank Pain Musculoskeletal: denies: Back Pain, Joint Swelling Neurological: reports: Headache. denies: Confusion, Dizziness Endocrine: denies: Unexplained Weight Loss Hematology/Lymphatic: denies: Excessive Bleeding Physical Exam-GI Vital Signs: Vital Signs Temperature 98.3 F 04/02/17 05:26 Pulse Rate 84 04/02/17 11:08 Respiratory Rate 18 04/02/17 11:08 Blood Pressure 117/66 04/02/17 11:08 O2 Sat by Pulse Oximetry (%) 99 04/02/17 11:08 Constitutional: Yes: Well Nourished, No Distress, Anxious Eyes: Yes: Conjunctiva Clear HENT: Yes: Atraumatic, Normocephalic. No: Hoarseness Neck: Yes: Supple Cardiovascular: Yes: Regular Rate and Rhythm Respiratory: Yes: Regular, CTA Bilaterally Gastrointestinal Inspection: No: Ascites, Distention ...Auscultate: Yes: Normoactive Bowel Sounds ...Palpate: Yes: Guarding (voluntary, generalized), Soft, Tenderness, Tenderness , Epigastium. No: Firm/Rigid, Hepatomegaly, Mass, Pulsatile Mass, Tenderness, Rebound ...Percussion: No: Fluid Wave Musculoskeletal: No: Joint Swelling Edema: No Integumentary: No: Jaundice Neurological: Yes: Alert, Oriented Labs: CBCD WBC 18.6 K/mm3 (4.0-10.0) H D 04/02/17 02:34 RBC 4.08 M/mm3 (3.60-5.2) 04/02/17 02:34 Hgb 11.5 GM/dL (10.7-15.3) 04/02/17 02:34 Hct 35.1 % (32.4-45.2) 04/02/17 02:34 MCV 86.0 fl (80-96) 04/02/17 02:34 MCHC 32.8 g/dl (32.0-36.0) 04/02/17 02:34 RDW 19.2 % (11.6-15.6) H 04/02/17 02:34 Plt Count 573 K/MM3 (134-434) H D 04/02/17 02:34 MPV 7.6 fl (7.5-11.1) 04/02/17 02:34 CMP Sodium 140 mmol/L (136-145) 04/02/17 02:34 Potassium 3.9 mmol/L (3.5-5.1) 04/02/17 02:34 Chloride 101 mmol/L (98-107) 04/02/17 02:34 Carbon Dioxide 30 mmol/L (21-32) 04/02/17 02:34 Anion Gap 9 (8-16) 04/02/17 02:34 BUN 12 mg/dL (7-18) D 04/02/17 02:34 Creatinine 0.9 mg/dL (0.55-1.02) D 04/02/17 02:34 Creat Clearance w eGFR > 60 (>60) 04/02/17 02:34 Calcium 11.2 mg/dL (8.5-10.1) H 04/02/17 02:34 Total Bilirubin 0.4 mg/dL (0.2-1.0) D 04/02/17 02:34 AST 12 U/L (15-37) L D 04/02/17 02:34 ALT 20 U/L (12-78) 04/02/17 02:34 Alkaline Phosphatase 183 U/L (45-117) H 04/02/17 02:34 Total Protein 8.1 g/dl (6.4-8.2) 04/02/17 02:34 Albumin 4.1 g/dl (3.4-5.0) 04/02/17 02:34 Home Medications Medication Instructions Recorded NK [No Known Home Medication] 04/02/17 Initial Vital Signs Temp Pulse Resp BP Pulse Ox 98.5 F 114 H 20 119/75 97 04/02/17 01:56 04/02/17 01:56 04/02/17 01:56 04/02/17 01:56 04/02/17 01:56 Vital Signs (72 hours) 04/02/17 04/02/17 04/02/17 01:56 05:26 11:08 Temperature 98.5 F 98.3 F Pulse Rate 114 H Pulse Rate [ 96 H 84 Radial] Respiratory 20 17 18 Rate Blood Pressure 119/75 Blood Pressure 114/75 117/66 [Right Arm] O2 Sat by Pulse 97 100 99 Oximetry (%) Imaging - Results Cat Scan: Report Reviewed Ultrasound: Report Reviewed Problem List - Problems (1) Cholelith Assessment/Plan: Sx evaluation agree with Abx HIDA and MRCP Code(s): K80.20 - CALCULUS OF GALLBLADDER W/O CHOLECYSTITIS W/O OBSTRUCTION Qualifiers: Cholelithiasis location: gallbladder Cholecystitis acuity: acute Biliary obstruction: with biliary obstruction (2) Epigastric abdominal tenderness Assessment/Plan: Cannot rule out upper GI ethiloogy s/a PUD, esopgatitis. Epigastric tenderness. No clear cut castro's sign. No classic postprandial RUQ pain History of the same in January of this year. Plan EGD today Code(s): R10.816 - EPIGASTRIC ABDOMINAL TENDERNESS Qualifiers: Presence of rebound: present Qualified Code(s): R10.826 - Epigastric rebound abdominal tenderness
--- NOTE | 2017-04-02 14:24 | HP ---
Admitting History and Physical - Admission Chief Complaint: Abdominal pain History of Present Illness: The pt is a 46 year old female with a PMH of chronic migranes, chronic contipation that presents to the hospital today complaining of epigastric pain that started 2 says ago, loss of appetite, chills, headache. She reports that her pain is sharp, in epigastrium, radiating to lower abdomen, no association with food. She also states that it is 10/10. She vomited once yesterday and once today but denies nausea or hematemesis. She states that she had similar episode in January this year and visited ED in [place]. She was discharged and told that she probably has ulcer. Her last bowel movement was yesterday. She denies hematochezia, change in bowel habits. She denies dysuria, chest pain, palpitations, SOB. The pt is [facility] complaining of right ankle pain that is present for 5 months. She was diagnosed with ankle sprain and prescribed splint but she is not compliant. She reports sever pain in her ankle that is constant, 10/10. The pt is Tajik speaking. History was translated by her son who was present at bedside. 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 No : Colonoscopy - Smoking History Smoking history: Never smoked Have you smoked in the past 12 months: No - Alcohol/Substance Use Hx Alcohol Use: No <Ashli Magaña - Last Filed: 04/02/17 14:45> Home Medications <Ashli Magaña - Last Filed: 04/02/17 14:45> <Karoline Aragon - Last Filed: 04/02/17 20:38> - Allergies Allergies/Adverse Reactions: Allergies Allergy/AdvReac Type Severity Reaction Status Date / Time No Known Allergies Allergy Verified 04/02/17 02:03 - Home Medications Home Medications: Ambulatory Orders NK [No Known Home Medication] 04/02/17 Family Disease History - Family Disease History Family Disease History: Heart Disease: Father, Other: Mother (healthy) <Ashli Magaña - Last Filed: 04/02/17 14:45> Review of Systems - Review of Systems Constitutional: reports: Chills, Loss of Appetite Eyes: reports: No Symptoms HENT: reports: Other (headache). denies: Difficult Swallowing, Hearing Loss, Nasal Congestion Neck: reports: No Symptoms Cardiovascular: reports: No Symptoms. denies: Chest Pain, Edema, Palpitations Respiratory: reports: No Symptoms. denies: Cough, SOB Gastrointestinal: reports: Abdominal Pain, Constipation, Vomiting. denies: Diarrhea, Melena, Nausea Genitourinary: reports: No Symptoms. denies: Burning, Dysuria, Flank Pain Musculoskeletal: reports: No Symptoms, Back Pain (mild lower back pain) Integumentary: reports: No Symptoms. denies: Erythema, Lesions Neurological: reports: Headache. denies: Dizziness, Numbness, Parasthesia, Seizure Endocrine: reports: No Symptoms <Ashli Magaña - Last Filed: 04/02/17 14:45> Physical Examination Vital Signs: Vital Signs Temperature 98.3 F 04/02/17 05:26 Pulse Rate 84 04/02/17 11:08 Respiratory Rate 18 04/02/17 11:08 Blood Pressure 117/66 04/02/17 11:08 O2 Sat by Pulse Oximetry (%) 99 04/02/17 11:08 Constitutional: Yes: Well Nourished, No Distress Eyes: Yes: WNL, Conjunctiva Clear, EOM Intact. No: Diplopia, PERRL, Ptosis HENT: Yes: WNL, Atraumatic, Normocephalic Neck: Yes: WNL, Supple, Trachea Midline Cardiovascular: Yes: WNL, Regular Rate and Rhythm, S1, S2 Respiratory: Yes: WNL, Regular, CTA Bilaterally. No: Cough Gastrointestinal: Yes: Normal Bowel Sounds, Soft, Abdomen, Obese, Tenderness, Epigastrium. No: Ascites, Distention, Palpable Mass Renal/: Yes: WNL. No: CVA Tenderness - Left, CVA Tenderness - Right, Hematuria <Ashli Magaña - Last Filed: 04/02/17 14:45> Vital Signs: Vital Signs Temperature 98.7 F 04/02/17 16:11 Pulse Rate 76 04/02/17 16:11 Respiratory Rate 18 04/02/17 16:11 Blood Pressure 135/72 04/02/17 16:11 O2 Sat by Pulse Oximetry (%) 99 04/02/17 16:40 <Karoline Aragon - Last Filed: 04/02/17 20:38> Problem List - Problems (1) Cholecystitis Code(s): K81.9 - CHOLECYSTITIS, UNSPECIFIED (2) Cholelith Code(s): K80.20 - CALCULUS OF GALLBLADDER W/O CHOLECYSTITIS W/O OBSTRUCTION Qualifiers: Cholelithiasis location: gallbladder Cholecystitis acuity: acute Biliary obstruction: with biliary obstruction (3) Epigastric abdominal tenderness Code(s): R10.816 - EPIGASTRIC ABDOMINAL TENDERNESS Qualifiers: Presence of rebound: present Qualified Code(s): R10.826 - Epigastric rebound abdominal tenderness (4) Headache Code(s): R51 - HEADACHE (5) Ankle pain, chronic Code(s): M25.579 - PAIN IN UNSPECIFIED ANKLE AND JOINTS OF UNSPECIFIED FOOT G89.29 - OTHER CHRONIC PAIN <Ashli Magaña - Last Filed: 04/02/17 14:45> Assessment/Plan This is a 46 year old female with a PMH of chronic migranes and constipation who presented to the hospital complaining of epigastric pai9n and vomiting for two days. She was admitted for possible cholecystitis and cholelithiasis. Epigastric pain: -possible due to cholecystitis or peptic ulcer disease but CT abdomen and US abdomen are not confirmatory -will obtain HIDA scan -GI consultation, will follow up -scheduled for EGD -will give Flagyl 500 mg IV Q8h and Levaquin 500 mg IV -Tylenol for pain -pt denies nausea so no medications given Cholelithiasis: -confirmed on imiging studies -elevated Alk Phos and WBC but no liver enzymes, lipase -Vital signs stable, no fever, tachycardia -will f/u GI recommendations Chronic migranes: -will give Tylenol Ankle pain: -pain control DVT PPX: -Heparin 5000 SQ -SCDs F/E/N: no/no changes/NPO Disposition: med surg Discussed with my attending Dr. Aragon <Ashli Magaña - Last Filed: 04/02/17 14:45> Visit type - Emergency Visit Emergency Visit: Yes ED Registration Date: 04/02/17 Care time: The patient presented to the Emergency Department on the above date and was hospitalized for further evaluation of their emergent condition. - New Patient This patient is new to me today: Yes Date on this admission: 04/02/17 - Critical Care Critical Care patient: No <Ashli Magaña - Last Filed: 04/02/17 14:45>
[2017-04-02 14:34] LABS: TROPONIN I < 0.02 ng/ml (0.00-0.05)
[2017-04-02] MEDS ORDERED: LIDOCAINE HCL/PF 2% SDV 5ML VIAL ONE (14:35)
[2017-04-02] MEDS ORDERED: PROPOFOL 20 ML ONE ×3 (14:36)
--- NOTE | 2017-04-02 15:30 | PN ---
Progress Note (short form) - Note Progress Note: s/p EGD 1. grade II esophagitis 2. gastritis/erythema in the cardia 3. biopsies taken Normal rest of the esophagus, stomach. Normal duodenal bulb and the 2nd portion. Problem List - Problems (1) Cholelith Code(s): K80.20 - CALCULUS OF GALLBLADDER W/O CHOLECYSTITIS W/O OBSTRUCTION Qualifiers: Cholelithiasis location: gallbladder Cholecystitis acuity: acute Biliary obstruction: with biliary obstruction (2) Epigastric abdominal tenderness Code(s): R10.816 - EPIGASTRIC ABDOMINAL TENDERNESS Qualifiers: Presence of rebound: present Qualified Code(s): R10.826 - Epigastric rebound abdominal tenderness (3) Esophagitis determined by endoscopy Code(s): K20.9 - ESOPHAGITIS, UNSPECIFIED (4) Gastritis Code(s): K29.70 - GASTRITIS, UNSPECIFIED, WITHOUT BLEEDING Visit type - Emergency Visit Emergency Visit: No - New Patient This patient is new to me today: No - Critical Care Critical Care patient: No
[2017-04-02 16:22] VITALS: BMI 33.7
[2017-04-02] MEDS ORDERED: GLYCERIN 1 RECTAL SUPPOSITORY, ADULT PR ONE (17:04)
[2017-04-02] MEDS ORDERED: ACETAMINOPHEN/CAFFEINE/BUTALBITAL 1 TAB PO ONE (17:05)
--- NOTE | 2017-04-02 17:09 | PN ---
Teaching Attending Note Name of Resident: Ashli Magaña ATTENDING PHYSICIAN STATEMENT I saw and evaluated the patient. I reviewed the resident's note and discussed the case with the resident. I agree with the resident's findings and plan as documented. SUBJECTIVE: This patient is a 46 year old female with a PMHx of severe chronic migranes, chronic contipation (BM every 3-5 days) presents to the hospital c/o having midepigastric pain with RUQ pain. OBJECTIVE: Vital Signs Temperature 98.7 F 04/02/17 16:11 Pulse Rate 76 04/02/17 16:11 Respiratory Rate 18 04/02/17 16:11 Blood Pressure 135/72 04/02/17 16:11 O2 Sat by Pulse Oximetry (%) 99 04/02/17 16:40 CBCD WBC 18.6 K/mm3 (4.0-10.0) H D 04/02/17 02:34 RBC 4.08 M/mm3 (3.60-5.2) 04/02/17 02:34 Hgb 11.5 GM/dL (10.7-15.3) 04/02/17 02:34 Hct 35.1 % (32.4-45.2) 04/02/17 02:34 MCV 86.0 fl (80-96) 04/02/17 02:34 MCHC 32.8 g/dl (32.0-36.0) 04/02/17 02:34 RDW 19.2 % (11.6-15.6) H 04/02/17 02:34 Plt Count 573 K/MM3 (134-434) H D 04/02/17 02:34 MPV 7.6 fl (7.5-11.1) 04/02/17 02:34 CMP Sodium 140 mmol/L (136-145) 04/02/17 02:34 Potassium 3.9 mmol/L (3.5-5.1) 04/02/17 02:34 Chloride 101 mmol/L (98-107) 04/02/17 02:34 Carbon Dioxide 30 mmol/L (21-32) 04/02/17 02:34 Anion Gap 9 (8-16) 04/02/17 02:34 BUN 12 mg/dL (7-18) D 04/02/17 02:34 Creatinine 0.9 mg/dL (0.55-1.02) D 04/02/17 02:34 Creat Clearance w eGFR > 60 (>60) 04/02/17 02:34 Random Glucose 114 mg/dL (74-106) H 04/02/17 02:34 Calcium 11.2 mg/dL (8.5-10.1) H 04/02/17 02:34 Total Bilirubin 0.4 mg/dL (0.2-1.0) D 04/02/17 02:34 AST 12 U/L (15-37) L D 04/02/17 02:34 ALT 20 U/L (12-78) 04/02/17 02:34 Alkaline Phosphatase 183 U/L (45-117) H 04/02/17 02:34 Total Protein 8.1 g/dl (6.4-8.2) 04/02/17 02:34 Albumin 4.1 g/dl (3.4-5.0) 04/02/17 02:34 CARDIAC ENZYMES Troponin I < 0.02 ng/ml (0.00-0.05) 04/02/17 02:34 Current Medications Generic Name Dose Route Start Last Admin Trade Name Freq PRN Reason Stop Dose Admin Enoxaparin Sodium 40 mg 04/03/17 10:00 Lovenox - SQ DAILY RC Metronidazole 100 mls @ 100 mls/hr 04/02/17 15:00 Flagyl 500mg Premixed Ivpb - IVPB Q8H-IV RC Levofloxacin 100 mls @ 100 mls/hr 04/02/17 15:00 Levaquin 500 Mg Premixed Ivpb - IVPB DAILY RC Sodium Chloride 1,000 mls @ 100 mls/hr 04/02/17 17:15 1/2 Normal Saline IV ASDIR RC Pantoprazole Sodium 40 mg 04/03/17 10:00 Protonix - PO DAILY RC Zolpidem Tartrate 5 mg 04/02/17 22:07 Ambien - PO 04/02/17 22:08 ONCE ONE Home Medications Medication Instructions Recorded NK [No Known Home Medication] 04/02/17 PE: patient is crying due to having headache. Head supple chest clear heart S1S2 positive abdomen soft, nt extremities: left ankle tenderness with minimal swelling rest of PE: per resident's note US of abdomen: reviewed no acute cholecystitis CT of abd: reviewed. left adnexal cystic lesion , no change from 01/02/1017 HIDA scan: negative ASSESSMENT AND PLAN: This patient is a 46 year old female with a PMHx of severe chronic migranes, chronic contipation (BM every 3-5 days) presents to the hospital c/o having midepigastric pain with RUQ pain. While in Ed.patient was seen by GI; and was taken for EGD. # Acute Epgastric pain with RUQ pain r/o acute cholecystitis. Started on IV antibiotic Flagyl/Rocephin for possible cholecystitis since presented with WBC 18.6 , with HR of 114. patient was taken for EGD by GI # Cholelithiasis: with RUQ pain started on IV antibiotics; surgical consult , will; monitor # Acute over Chronic migranes exacerbation : ordered Fioricet since takes it at home for migraine. # Hx of left Ankle sprain ( 5 months ago) # hx of Insomnia on ambien ( home med) continue with 5mg DVT PPX: Lovenox 40mg sq
[2017-04-02] MEDS: LEVOFLOXACIN 500 MG IVPB 100 ML IVPB SCH (17:23)
[2017-04-02] MEDS: METRONIDAZOLE 500 MG PREMIXED 100 ML IVPB SCH ×2 (17:23→18:20)
[2017-04-02] MEDS: SODIUM CHLORIDE 0.45% 1,000 ML IV SCH ×2 (17:25→21:31)
[2017-04-02] MEDS ORDERED: HEPARIN NA (PORCINE) 5,000 UNITS/ML 1ML VIAL SQ SCH (18:00)
[2017-04-02] MEDS ORDERED: ZOLPIDEM TARTRATE 5 MG TABLET PO ONE (22:07)
[2017-04-03] MEDS: METRONIDAZOLE 500 MG PREMIXED 100 ML IVPB SCH ×3 (02:24→10:53)
[2017-04-03 08:09] LABS: EOSINOPHIL 1.7 % (0-4.5); MCH 28.4 pg (25.7-33.7); MCHC 32.4 g/dl (32.0-36.0); MEAN CELL VOLUME 87.5 fl (80-96); MEAN PLT VOLUME 7.8 fl (7.5-11.1); NEUTROPHILS 53.4 % (42.8-82.8); PLATELET COUNT 419 K/MM3 (134-434); RDW 19.6 % (11.6-15.6); WHITE BLOOD COUNT 7.9 K/mm3 (4.0-10.0)
[2017-04-03 08:31] LABS: ALBUMIN 3.3 g/dl (3.4-5.0); ANION GAP 9 (8-16); CALCIUM 9.8 mg/dL (8.5-10.1); CO2 26 mmol/L (21-32); GLUCOSE,RANDOM 79 mg/dL (74-106); MAGNESIUM 1.8 mg/dL (1.8-2.4); SGOT/AST 12 U/L (15-37)
[2017-04-03 08:33] LABS: ALK PHOS 158 U/L (45-117); BILIRUBIN,TOTAL 0.4 mg/dL (0.2-1.0); CREATININE 0.5 mg/dL (0.55-1.02); PHOSPHOROUS 2.2 mg/dL (2.5-4.9); SGPT/ALT 16 U/L (12-78)
[2017-04-03 08:37] LABS: INR 1.28 (0.82-1.09); PROTHROMBIN TIME (PATIENT) 14.2 SEC (9.98-11.88)
--- NOTE | 2017-04-03 08:46 | CONSULT ---
Consult Reason for Consultation:: abdominal pain - History of Present Illness History of Present Illness: 46 yr old female presents with 2 weeks of epigastric pain, denies and vomiting or diarrhea - History Source History Provided By: Patient Limitations to Obtaining History: No Limitations - Past Medical History [employer]: Yes: Migraine Pulmonary: No: Asthma, COPD Gastrointestinal: No: Ascites, Constipation, Crohn's Disease, Diverticulitis, Diverticulosis, Esophageal Varices, Gastritis, GERD, GI Bleed, Hemorrhoids, Hiatal Hernia, Inflamatory Bowel Disease, Irritable Bowel Disease, Pancreatitis , Peptic Ulcer Disease Hepatobiliary: No: Cirrhosis, Cholelithiasis, Cholecystitis, Hepatitis B, Hepatitis C Renal/: No: Renal Failure, Hematuria ...LMP: 03/01/17 ...: No - Past Surgical History Past Surgical History: Yes: None, (two c sections 1989 and 1991). No : Colonoscopy - Alcohol/Substance Use Hx Alcohol Use: No - Smoking History Smoking history: Never smoked Have you smoked in the past 12 months: No Home Medications - Allergies Allergies/Adverse Reactions: Allergies Allergy/AdvReac Type Severity Reaction Status Date / Time No Known Allergies Allergy Verified 04/02/17 02:03 - Home Medications Home Medications: Ambulatory Orders NK [No Known Home Medication] 04/02/17 Family Disease History - Family Disease History Family Disease History: Heart Disease: Father, Other: Mother (healthy) Physical Exam Vital Signs: Vital Signs Temperature 98.1 F 04/03/17 06:00 Pulse Rate 92 H 04/03/17 06:00 Respiratory Rate 18 04/03/17 06:00 Blood Pressure 122/93 04/03/17 06:00 O2 Sat by Pulse Oximetry (%) 99 04/02/17 21:00 Labs: CBC, BMP 04/03/17 07:00 Imaging - Results Cat Scan: Report Reviewed, Image Reviewed Ultrasound: Report Reviewed, Image Reviewed Other: Report Reviewed, Image Reviewed (HIDA scan negative) Problem List - Problems (1) Esophagitis determined by endoscopy Code(s): K20.9 - ESOPHAGITIS, UNSPECIFIED (2) Gastritis Code(s): K29.70 - GASTRITIS, UNSPECIFIED, WITHOUT BLEEDING (3) Epigastric abdominal tenderness Code(s): R10.816 - EPIGASTRIC ABDOMINAL TENDERNESS Qualifiers: Presence of rebound: present Qualified Code(s): R10.826 - Epigastric rebound abdominal tenderness Assessment/Plan 46 yr old with epigastric pain elevated WBC and cholelithiasis, HiDA scana dn CT not consistent with cholecystitis symptoms most likely secondary to gastritis and esophagitis. no need for surgical intervention
[2017-04-03] MEDS ORDERED: ACETAMINOPHEN/CAFFEINE/BUTALBITAL 1 TAB PO PRN (09:23)
[2017-04-03] MEDS: LEVOFLOXACIN 500 MG IVPB 100 ML IVPB SCH (09:28)
[2017-04-03] MEDS ORDERED: ENOXAPARIN NA (PORCINE) 40 MG/0.4 ML DISP.SYRIN SQ SCH (10:00)
[2017-04-03] MEDS ORDERED: PANTOPRAZOLE 40 MG TABLET (FP) PO SCH (10:00)
[2017-04-03] MEDS ORDERED: PT OWN MED DRAWER 7, Y5N ONE (10:46)
--- NOTE | 2017-04-03 13:03 | EKG ---
Test Reason : Blood Pressure : / mmHG Vent. Rate : 083 BPM Atrial Rate : 083 BPM P-R Int : 140 ms QRS Dur : 078 ms QT Int : 400 ms P-R-T Axes : 039 045 027 degrees QTc Int : 470 ms NORMAL SINUS RHYTHM POSSIBLE LEFT ATRIAL ENLARGEMENT LEFT VENTRICULAR HYPERTROPHY ABNORMAL ECG Confirmed by MARIUSZ CARVER MD ([id number]) on 04/03/2017 1:02:56 PM Referred By: Confirmed By:MARIUSZ CARVER MD
--- NOTE | 2017-04-03 14:27 | PN ---
Physical Exam: SUBJECTIVE: Patient seen and examined OBJECTIVE: Vital Signs Temperature 98.1 F 04/03/17 06:00 Pulse Rate 92 H 04/03/17 06:00 Respiratory Rate 18 04/03/17 06:00 Blood Pressure 122/93 04/03/17 06:00 O2 Sat by Pulse Oximetry (%) 99 04/02/17 21:00 GENERAL: The patient is awake, alert, and fully oriented, in no acute distress. HEAD: Normal with no signs of trauma. EYES: PERRL, extraocular movements intact, sclera anicteric, conjunctiva clear. No ptosis. ENT: Ears normal, nares patent, oropharynx clear without exudates, moist mucous membranes. NECK: Trachea midline, full range of motion, supple. LUNGS: Breath sounds equal, clear to auscultation bilaterally, no wheezes, no crackles, no accessory muscle use. HEART: Regular rate and rhythm, S1, S2 without murmur, rub or gallop. ABDOMEN: Soft, nontender, nondistended, normoactive bowel sounds, no guarding, no rebound, no hepatosplenomegaly, no masses. EXTREMITIES: 2+ pulses, warm, well-perfused, no edema. NEUROLOGICAL: Cranial nerves II through XII grossly intact. Normal speech, gait not observed. PSYCH: Normal mood, normal affect. SKIN: Warm, dry, normal turgor, no rashes or lesions noted CBCD WBC 7.9 K/mm3 (4.0-10.0) D 04/03/17 07:00 RBC 3.61 M/mm3 (3.60-5.2) 04/03/17 07:00 Hgb 10.2 GM/dL (10.7-15.3) L D 04/03/17 07:00 Hct 31.6 % (32.4-45.2) L 04/03/17 07:00 MCV 87.5 fl (80-96) 04/03/17 07:00 MCHC 32.4 g/dl (32.0-36.0) 04/03/17 07:00 RDW 19.6 % (11.6-15.6) H 04/03/17 07:00 Plt Count 419 K/MM3 (134-434) D 04/03/17 07:00 MPV 7.8 fl (7.5-11.1) 04/03/17 07:00 CMP Sodium 139 mmol/L (136-145) 04/03/17 07:00 Potassium 3.4 mmol/L (3.5-5.1) L 04/03/17 07:00 Chloride 104 mmol/L (98-107) 04/03/17 07:00 Carbon Dioxide 26 mmol/L (21-32) 04/03/17 07:00 Anion Gap 9 (8-16) 04/03/17 07:00 BUN 5 mg/dL (7-18) L D 04/03/17 07:00 Creatinine 0.5 mg/dL (0.55-1.02) L D 04/03/17 07:00 Creat Clearance w eGFR > 60 (>60) 04/03/17 07:00 Random Glucose 79 mg/dL (74-106) D 04/03/17 07:00 Calcium 9.8 mg/dL (8.5-10.1) 04/03/17 07:00 Total Bilirubin 0.4 mg/dL (0.2-1.0) 04/03/17 07:00 AST 12 U/L (15-37) L 04/03/17 07:00 ALT 16 U/L (12-78) 04/03/17 07:00 Alkaline Phosphatase 158 U/L (45-117) H 04/03/17 07:00 Total Protein 7.0 g/dl (6.4-8.2) 04/03/17 07:00 Albumin 3.3 g/dl (3.4-5.0) L 04/03/17 07:00 CARDIAC ENZYMES Troponin I < 0.02 ng/ml (0.00-0.05) 04/02/17 02:34 Active Medications Generic Name Dose Route Start Last Admin Trade Name Freq PRN Reason Stop Dose Admin Acetaminophen/Butalbital/Caffeine 1 tablet 04/03/17 09:23 04/03/17 09:29 Fioricet - PO 1 tablet Q6H PRN Administration FEVER OR PAIN Enoxaparin Sodium 40 mg 04/03/17 10:00 04/03/17 09:28 Lovenox - SQ 40 mg DAILY RC Administration Metronidazole 100 mls @ 100 mls/hr 04/02/17 15:00 04/03/17 10:53 Flagyl 500mg Premixed Ivpb - IVPB 100 mls/hr Q8H-IV RC Administration Levofloxacin 100 mls @ 100 mls/hr 04/02/17 15:00 04/03/17 09:28 Levaquin 500 Mg Premixed Ivpb - IVPB 100 mls/hr DAILY RC Administration Sodium Chloride 1,000 mls @ 100 mls/hr 04/02/17 17:15 04/02/17 21:31 1/2 Normal Saline IV 100 mls/hr ASDIR RC Administration Pantoprazole Sodium 40 mg 04/03/17 10:00 04/03/17 09:28 Protonix - PO 40 mg DAILY RC Administration ASSESSMENT/PLAN:
--- NOTE | 2017-04-03 14:49 | DS ---
Physical Exam: SUBJECTIVE: Patient seen and examined Patient feels better today , no further abdominal pain. OBJECTIVE: Vital Signs Temperature 98.1 F 04/03/17 06:00 Pulse Rate 92 H 04/03/17 06:00 Respiratory Rate 18 04/03/17 06:00 Blood Pressure 122/93 04/03/17 06:00 O2 Sat by Pulse Oximetry (%) 99 04/02/17 21:00 PHYSICAL EXAM GENERAL: The patient is awake, alert, and fully oriented, in no acute distress. HEAD: Normal with no signs of trauma. EYES: PERRL, extraocular movements intact, sclera anicteric, conjunctiva clear. ENT: Ears normal, nares patent, oropharynx clear without exudates, moist mucous membranes. NECK: Trachea midline, full range of motion, supple. LUNGS: Breath sounds equal, clear to auscultation bilaterally, no wheezes, no crackles, no accessory muscle use. HEART: Regular rate and rhythm, S1, S2 without murmur, rub or gallop. ABDOMEN: Soft, nontender, nondistended, normoactive bowel sounds, no guarding, no rebound, no hepatosplenomegaly, no masses. EXTREMITIES: 2+ pulses, warm, well-perfused, no edema. NEUROLOGICAL: Cranial nerves II through XII grossly intact. Normal speech, gait not observed. PSYCH: Normal mood, normal affect. SKIN: Warm, dry, normal turgor, no rashes or lesions noted. LABS Laboratory Results - last 24 hr CBCD WBC 7.9 K/mm3 (4.0-10.0) D 04/03/17 07:00 RBC 3.61 M/mm3 (3.60-5.2) 04/03/17 07:00 Hgb 10.2 GM/dL (10.7-15.3) L D 04/03/17 07:00 Hct 31.6 % (32.4-45.2) L 04/03/17 07:00 MCV 87.5 fl (80-96) 04/03/17 07:00 MCHC 32.4 g/dl (32.0-36.0) 04/03/17 07:00 RDW 19.6 % (11.6-15.6) H 04/03/17 07:00 Plt Count 419 K/MM3 (134-434) D 04/03/17 07:00 MPV 7.8 fl (7.5-11.1) 04/03/17 07:00 CMP Sodium 139 mmol/L (136-145) 04/03/17 07:00 Potassium 3.4 mmol/L (3.5-5.1) L 04/03/17 07:00 Chloride 104 mmol/L (98-107) 04/03/17 07:00 Carbon Dioxide 26 mmol/L (21-32) 04/03/17 07:00 Anion Gap 9 (8-16) 04/03/17 07:00 BUN 5 mg/dL (7-18) L D 04/03/17 07:00 Creatinine 0.5 mg/dL (0.55-1.02) L D 04/03/17 07:00 Creat Clearance w eGFR > 60 (>60) 04/03/17 07:00 Random Glucose 79 mg/dL (74-106) D 04/03/17 07:00 Calcium 9.8 mg/dL (8.5-10.1) 04/03/17 07:00 Total Bilirubin 0.4 mg/dL (0.2-1.0) 04/03/17 07:00 AST 12 U/L (15-37) L 04/03/17 07:00 ALT 16 U/L (12-78) 04/03/17 07:00 Alkaline Phosphatase 158 U/L (45-117) H 04/03/17 07:00 Total Protein 7.0 g/dl (6.4-8.2) 04/03/17 07:00 Albumin 3.3 g/dl (3.4-5.0) L 04/03/17 07:00 CARDIAC ENZYMES Troponin I < 0.02 ng/ml (0.00-0.05) 04/02/17 02:34 Current Medications Generic Name Dose Route Start Last Admin Trade Name Freq PRN Reason Stop Dose Admin Acetaminophen/Butalbital/Caffeine 1 tablet 04/03/17 09:23 04/03/17 09:29 Fioricet - PO 1 tablet Q6H PRN Administration FEVER OR PAIN Enoxaparin Sodium 40 mg 04/03/17 10:00 04/03/17 09:28 Lovenox - SQ 40 mg DAILY RC Administration Metronidazole 100 mls @ 100 mls/hr 04/02/17 15:00 04/03/17 10:53 Flagyl 500mg Premixed Ivpb - IVPB 100 mls/hr Q8H-IV RC Administration Levofloxacin 100 mls @ 100 mls/hr 04/02/17 15:00 04/03/17 09:28 Levaquin 500 Mg Premixed Ivpb - IVPB 100 mls/hr DAILY RC Administration Sodium Chloride 1,000 mls @ 100 mls/hr 04/02/17 17:15 04/02/17 21:31 1/2 Normal Saline IV 100 mls/hr ASDIR RC Administration Pantoprazole Sodium 40 mg 04/03/17 10:00 04/03/17 09:28 Protonix - PO 40 mg DAILY RC Administration Home Medications Medication Instructions Recorded NK [No Known Home Medication] 04/02/17 US of abdomen: reviewed no acute cholecystitis CT of abd: reviewed. left adnexal cystic lesion , no change from 01/02/1017 HIDA scan: negative HOSPITAL COURSE: Date of Admission:04/02/17 Date of Discharge: 04/03/17 This patient is a 46 year old female with a PMHx of severe chronic migranes, chronic contipation (BM every 3-5 days) presents to the hospital c/o having midepigastric pain with RUQ pain. While in Ed.patient was seen by GI; was taken for EGD. # Acute Epgastric pain , acute cholecystitis was ruled out by Hida scan. given IV antibiotic Flagyl/Rocephin. # Cholelithiasis: with RUQ pain resolved, seen by surgery will follow as an outpatient for possible cholecystectomy elective # Chronic migranes resolved, no further headache : continue as needed prn at home # Hx of left Ankle sprain ( 5 months ago) , feels no pain today # hx of Insomnia on ambiene ( home med) continue with 5mg as needed. discharge time 40 minutes Minutes to complete discharge: 40 Discharge Summary Reason For Visit: CHOLECYSTITIS Current Active Problems Esophagitis determined by endoscopy (Acute) Gastritis (Acute) Ankle pain, chronic (Acute) Cholecystitis (Acute) Cholelith (Acute) Epigastric abdominal tenderness (Acute) Headache (Acute) Condition: Stable - Instructions Diet, Activity, Other Instructions: Low fat diet. Low carbohydrate , low sugar diet. Referrals: Sukumar Prescott MD [Staff Physician] - 2 Weeks Disposition: HOME - Home Medications Comprehensive Discharge Medication List: Ambulatory Orders NK [No Known Home Medication] 04/02/17 This patient is new to me today: No Emergency Visit: Yes ED Registration Date: 04/02/17 Care time: The patient presented to the Emergency Department on the above date and was hospitalized for further evaluation of their emergent condition. Critical Care patient: No - Discharge Referral Referred to [facility] Med P.C[facility] No Physician Referral: Julio Guillermo MD (Int Med), Austin Carvalho MD (Int Med), Wood Cantu MD (Fam Med)
[2017-04-03] MEDS ORDERED: POTASSIUM CHLORIDE TABS 20 MEQ TABLET.ER (FP) PO ONE (14:51)
[2017-04-03] MEDS ORDERED: NAPH,MB-DB/K PH,MBDB POWDER PACKET PO ONE (14:51)
[2017-04-03 15:33] VITALS: BP 156/99; PULSE 97; TEMP 98
--- NOTE | 2017-04-06 14:51 | PATH ---
Surgical Pathology Report Patient Name: RITA GONZALEZ [facility]. Rec. #: [id number] /Age/Gender: 1970 (Age: 46) / F Account: [id number] Location: [facility] MED/SURG Taken: 04/02/2017 Received: 04/05/2017 Reported: 04/06/2017 Physicians: Sukumar Prescott M.D. Specimen(s) Received A: BX DUODENUM B: BX ANTRUM AND BODY C: BX GASTRIC FUNDUS D: BX DISTAL ESOPHAGUS Clinical History Rule out peptic ulcer Gastritis, esophagitis Final Diagnosis A. DUODENUM, SECOND PORTION, BIOPSY: DUODENAL MUCOSA WITH NONSPECIFIC ACUTE DUODENITIS. NO HISTOLOGIC EVIDENCE OF GLUTEN SENSITIVE ENTEROPATHY (CELIAC SPRUE) IDENTIFIED. B. STOMACH, ANTRUM AND BODY, BIOPSY: GASTRIC ANTRAL MUCOSA WITH MILD REACTIVE GASTROPATHY. IMMUNOSTAIN FOR H. PYLORI IS NEGATIVE. C. STOMACH, FUNDUS, BIOPSY: GASTRIC FUNDIC MUCOSA WITH NO PATHOLOGIC CHANGES. IMMUNOSTAIN FOR H. PYLORI IS NEGATIVE. D. DISTAL ESOPHAGUS, BIOPSY: SQUAMOUS MUCOSA WITH ULCERATION. NO INTESTINAL METAPLASIA IDENTIFIED (NO MUÑOZ'S IDENTIFIED). FUNGAL STAIN (PAS) IS NEGATIVE. Electronically Signed Topher Frost M.D. Gross Description A. Received in formalin, labeled "biopsy second portion of duodenum and bulb" are 2 cobos, irregular portions of soft tissue measuring 0.2 and 0.3 cm. in greatest dimension. The specimens are submitted in toto in one cassette. B. Received in formalin, labeled "biopsy antrum and body" are 2 cobos, irregular portions of soft tissue measuring 0.3 and 0.5 cm. in greatest dimension. The specimens are submitted in toto in one cassette. C. Received in formalin, labeled "biopsy gastric fundus" are 2 cobos, irregular portions of soft tissue measuring 0.2 and 0.3 cm. in greatest dimension. The specimens are submitted in toto in one cassette. D. Received in formalin, labeled "biopsy distal esophagus" are 4 cobos, irregular portions of soft tissue averaging 0.2 cm. in greatest dimension. The specimens are submitted in toto in one cassette. 04/05/2017 saudi04/05/2017
--- NOTE | 2017-04-08 16:01 | PROC ---
Endoscopy Procedure Endoscopy procedure completed. Please see scanned procedure report.
== END 2017-04-03 15:35 | disposition home or self-care (01) | DRG 241 ==
LOC: JER 01:18 → JERBED 10:58 → J8W 15:31
PROVIDERS: ADMIT Internal Medicine; ATTEND Internal Medicine
PROC: 0DB68ZX Excision of Stomach, Via Natural or Artificial Opening Endoscopic, Diagnostic (ICD-10-PCS; 2017-04-02)
PROC: 0DB38ZX Excision of Lower Esophagus, Via Natural or Artificial Opening Endoscopic, Diagnostic (ICD-10-PCS; principal; 2017-04-02 14:30)
DX: K29.70 Gastritis, unspecified, without bleeding (principal); K20.9 Esophagitis, unspecified; K80.20 Calculus of gallbladder without cholecystitis without obstruction; K44.9 Diaphragmatic hernia without obstruction or gangrene; K59.00 Constipation, unspecified; G43.909 Migraine, unspecified, not intractable, without status migrainosus; M25.571 Pain in right ankle and joints of right foot; G47.00 Insomnia, unspecified
CPT/HCPCS: 36415; 74176; 76705-TC; 78226-TC; 80053; 81003; 81015; 83690; 83735; 84100; 84484; 84703; 85025; 85610; 85730; 88305-TC; 93005; 93010; 99285-25; A9537

== ENCOUNTER 2017-04-09 11:12 | Inpatient (IN) | payer MEDICARE, OTHER ==
--- NOTE | 2017-04-09 11:19 | PDOC ---
History of Present Illness <Maisha Jim - Last Filed: 04/09/17 15:16> - General History Source: Patient, Family Exam Limitations: Language Barrier - History of Present Illness Initial Comments: 04/09/17 11:38 46 yr old female, with significant pmhx of cholelithiasis (04/02/17), esophagitis and gastritis (as per endoscopy on 04/02/17), chronic constipation, and migraines, who was recently admitted on 04/02/17 and discharged with protonix on 04/03/17 for gastritis. During her stay, she had a negative HIDA scan. She also had an endoscopy by Dr. Sukumar Prescott, which revealed gastritis and esophagitis. She returns to the emergency room today with of persistent and constant epigastric pain, nausea, and vomiting. She had 4 episodes of nonbloody , nonbilious vomiting since this morning. She denies fever, chills. Denies chest pain, SOB. Allergies: NKDA Surgical Hx: tubal ligation, 2 C-sections Social Hx: No tobacco use. No alcohol use. Previous surgical consult from Dr. Perry. GI: Dr. Sukumar Prescott <Jodie Barba - Last Filed: 04/09/17 15:17> - General Stated Complaint: ABD PAIN Time Seen by Provider: 04/09/17 11:19 Past History - Past Medical History Anemia: No Asthma: No Cancer: No Cardiac Disorders: No CVA: No COPD: No CHF: No Dementia: No Diabetes: No GI Disorders: No Disorders: No HTN: No Hypercholesterolemia: No Liver Disease: No Seizures: No Thyroid Disease: No - Immunization History Immunization Up to Date: No - Suicide/Smoking/Psychosocial Hx Smoking History: Never smoked Have you smoked in the past 12 months: No Hx Alcohol Use: No Drug/Substance Use Hx: No Substance Use Type: None Hx Substance Use Treatment: No <Maisha Jim - Last Filed: 04/09/17 15:16> <Jodie Barba - Last Filed: 04/09/17 15:17> - Past Medical History Allergies/Adverse Reactions: Allergies Allergy/AdvReac Type Severity Reaction Status Date / Time No Known Allergies Allergy Verified 04/02/17 02:03 Home Medications: Ambulatory Orders Pantoprazole Sodium [Protonix -] 40 mg PO DAILY #30 cap 04/03/17 Review of Systems - Review of Systems Able to Perform ROS?: Yes Comments:: 04/09/17 11:39 GENERAL/CONSTITUTIONAL: No fever or chills. No weakness. HEAD, EYES, EARS, NOSE AND THROAT: No change in vision. No ear pain or discharge. No sore throat. GASTROINTESTINAL: +epigastric pain, nausea, vomiting. No diarrhea or constipation. GENITOURINARY: No dysuria, frequency, or change in urination. CARDIOVASCULAR: No chest pain or shortness of breath. RESPIRATORY: No cough, wheezing, or hemoptysis. MUSCULOSKELETAL: No joint or muscle swelling or pain. No neck or back pain. SKIN: No rash NEUROLOGIC: No headache, vertigo, loss of consciousness, or change in strength/ sensation. ENDOCRINE: No increased thirst. No abnormal weight change. HEMATOLOGIC/LYMPHATIC: No anemia, easy bleeding, or history of blood clots. ALLERGIC/IMMUNOLOGIC: No hives or skin allergy. <Jodie Barba - Last Filed: 04/09/17 15:17> *Physical Exam - Vital Signs Last Vital Signs Temp Pulse Resp BP Pulse Ox 98.1 F 118 H 18 149/88 99 04/09/17 11:21 04/09/17 11:21 04/09/17 11:21 04/09/17 11:21 04/09/17 11:21 - Physical Exam Comments: 04/09/17 11:39 Constitutional: Awake, alert, oriented. Appears uncomfortable. In mild distress. Moaning. Head: Normocephalic. Atraumatic Eyes: PERRL. EOMI. Conjunctivae are not pale. ENT: Mucous membranes are moist and intact. Posterior pharynx without exudates or erythema. Uvula midline. Neck: Supple. Full ROM. No lymphadenopathy. Cardiovascular: Tachycardic. Regular rhythm. S1, S2 regular. Distal pulses are 2+ and symmetric. Pulmonary/Chest: No evidence of respiratory distress. Clear to auscultation bilaterally No wheezing, rales or rhonchi. Abdominal: +epigastric and RUQ tenderness to palpation, +Pineda's sign. Soft and non-distended. No rigidity. No organomegaly. No palpable masses. Good bowel sounds. Back: No CVA tenderness. Musculoskeletal: +right ankle tenderness. No edema. No cyanosis. No clubbing. Full range of motion in all extremities. Nocalf tenderness. Radial/ pedal pulses are intact and 2+ bilaterally Skin: Skin is warm and dry. No petechiae. No purpura. Neurological: Alert and oriented to person, place, and time. Cranial nerves II -XII are grossly intact. Normal speech. Strength is grossly symmetric. No sensory deficits. Psychiatric: Good eye contact. Normal interaction, affect and behavior. 04/09/17 13:16 <Jodie Barba - Last Filed: 04/09/17 15:17> Heart Score/ECG Review - ECG Intrepretation Comment:: 04/09/17 13:06 sinus at 94, nl axis, lvh, no acute st/t wave findings <Maisha Jim - Last Filed: 04/09/17 15:16> ED Treatment Course - LABORATORY CBC & Chemistry Diagram: 04/09/17 11:40 04/09/17 13:05 <Maisha Jim - Last Filed: 04/09/17 15:16> - LABORATORY CBC & Chemistry Diagram: 04/09/17 11:40 04/09/17 13:05 - RADIOLOGY Radiograph Interpretation: 04/09/17 13:16 EXAM: Right upper quadrant abdominal sonogram IMPRESSION: 1. Technically limited exam due to overlying bowel gas resulting in suboptimal evaluation of the pancreas, common bile duct and right kidney. 2. Cholelithiasis and gallbladder sludge with no grayscale sonographic evidence of acute cholecystitis. However, technologist reports a sonographic Pineda's sign. Therefore, clinical correlation for acute cholecystitis is recommended. If clinically warranted, a nuclear medicine hepatobiliary scan may be obtained to assess cystic duct patency. 3. Suboptimal evaluation of the right kidney with suggestion of right pelvocaliectasis. Relatively small size of the right kidney may be technical, rather than right renal atrophy. Lobulated contour of the right kidney may be related to lobulation. Reported By: Gifty Pimentel MD 04/09/17 1246 <Jodie Barba - Last Filed: 04/09/17 15:17> Medical Decision Making - Medical Decision Making 04/09/17 11:39 a/p: 46yo albanian speaking female with n/v since yesterday and epigastric/RUQ pain -recently dx with gallstones, gastritis, esophagitis - seen by GI, Surgery, HP - sent home with protonix -now with worsening RUQ pain, inability to tolerate PO -concern for poss worsening gastritis/PUD/cholecystitis -repeat labs, ekg, RUQ ultrasound 04/09/17 15:00 case discussed with GAEL - Genie who will see the patient. patient updated on labs and imaging. will need to be admitted for gallstone pancreatitis 04/09/17 15:00 microblog placed to IM - awaiting call back 04/09/17 15:[address] Henson 04/09/17 15:16 case discussed with IM who accepts pt to service <Maisha Jim - Last Filed: 04/09/17 15:16> - Medical Decision Making 04/09/17 14:[address] Henson @2:10pm [phone]. Awaiting call back. Called Dr. Prescott @2:12pm [phone]. Awaiting call back. 04/09/17 15:17 Dr. Prescott came into the ED for consult. <Jodie Barba - Last Filed: 04/09/17 15:17> *DC/Admit/Observation/Transfer - Discharge Dispostion Admit: Yes - Attestations Physician Attestion: 04/09/17 15:15 I, Dr. Maisha Jim, DO, attest that this document has been prepared under my direction and personally reviewed by me in its entirety. I further attest, that it accurately reflects all work, treatment, procedures and medical decision -making performed by me. <Maisha Jim - Last Filed: 04/09/17 15:16> <Jodie Barba - Last Filed: 04/09/17 15:17> Diagnosis at time of Disposition: Acute gallstone pancreatitis - Discharge Dispostion Condition at time of disposition: Fair
[2017-04-09] MEDS ORDERED: FAMOTIDINE 20 MG/50 ML IVPB 50 ML IVPB ONE ×2 (11:21→11:44)
[2017-04-09] MEDS ORDERED: SODIUM CHLORIDE 0.9% 1000 ML INFUS.BAG IV ONE ×2 (11:21→14:35)
[2017-04-09] MEDS ORDERED: ONDANSETRON 4 MG/2 ML VIAL IVPUSH ONE ×2 (11:21→13:13)
[2017-04-09] MEDS ORDERED: morphine CARPU-JECT 4 MG/1 ML DISP.SYRIN IVPUSH ONE ×2 (11:21→13:13)
[2017-04-09] MEDS ORDERED: morphine CARPU-JECT 2 MG/1 ML DISP.SYRIN ONE ×2 (11:43→12:49)
[2017-04-09] MEDS ORDERED: ONDANSETRON 4 MG/2 ML VIAL ONE ×2 (11:43→12:49)
[2017-04-09 12:17] LABS: EOSINOPHIL 2.3 % (0-4.5); MCHC 32.2 g/dl (32.0-36.0); MEAN CELL VOLUME 86.9 fl (80-96); MEAN PLT VOLUME 7.5 fl (7.5-11.1); NEUTROPHILS 50.4 % (42.8-82.8); PLATELET COUNT 421 K/MM3 (134-434); RDW 19.9 % (11.6-15.6)
[2017-04-09 12:26] LABS: INR 1.12 (0.82-1.09); PROTHROMBIN TIME (PATIENT) 12.3 SEC (9.98-11.88)
[2017-04-09 12:29] LABS: ACTIVATED PTT 30.5 SECONDS (26.9-34.4)
[2017-04-09 13:55] LABS: ALBUMIN 3.7 g/dl (3.4-5.0); ANION GAP 8 (8-16); CALCIUM 10.4 mg/dL (8.5-10.1); CO2 24 mmol/L (21-32); GLUCOSE,RANDOM 85 mg/dL (74-106); SGOT/AST 9 U/L (15-37); SGPT/ALT 17 U/L (12-78)
[2017-04-09 13:57] LABS: ALK PHOS 153 U/L (45-117); BILIRUBIN,TOTAL 0.4 mg/dL (0.2-1.0); CREATININE 0.6 mg/dL (0.55-1.02); TOT PROT 7.5 g/dl (6.4-8.2)
[2017-04-09] MEDS ORDERED: METOCLOPRAMIDE HCL INJECTION 10 MG/2 ML VIAL IVPUSH ONE (14:35)
[2017-04-09] MEDS ORDERED: KCL 10 MEQ IVPB 100 ML IVPB SCH (14:45)
--- NOTE | 2017-04-09 14:50 | CON.GI ---
Consult Consult Specialty:: GI Referred by:: PINO DAVIS Reason for Consultation:: Abdominal pain - History of Present Illness History of Present Illness: Known to me from a recent admission for epigastric pain. 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 01/11 , no alleviating factors. No improvement since discharge. Able to tolerate milk and bread. NO fever, chills, diarrhea. No jaundice, NSAIDs, ETOH. An EGD 1 week ago revealed gastritis and esophagitis w/o significant pathology. 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 No: Hiatal Hernia , Inflamatory Bowel Disease, Peptic Ulcer Disease Hepatobiliary: Yes: Cholelithiasis, Other (biliary sludge) ...LMP: 03/01/17 - Past Surgical History Past Surgical History: Yes: None, (two c sections 1989 and 1991). No : Colonoscopy - Alcohol/Substance Use Hx Alcohol Use: No - Smoking History Smoking history: Never smoked Have you smoked in the past 12 months: No Home Medications - Allergies Allergies/Adverse Reactions: Allergies Allergy/AdvReac Type Severity Reaction Status Date / Time No Known Allergies Allergy Verified 04/02/17 02:03 - Home Medications Home Medications: Ambulatory Orders Pantoprazole Sodium [Protonix -] 40 mg PO DAILY #30 cap 04/03/17 Family Disease History - Family Disease History Family History: Unremarkable Family Disease History: Heart Disease: Father, Other: Mother (healthy) Review of Systems Findings/Remarks: Please see admission HP for details - Review of Systems Constitutional: denies: Chills, Fever Cardiovascular: reports: No Symptoms Respiratory: reports: No Symptoms Gastrointestinal: reports: Abdominal Pain, Constipation, Nausea, Vomiting Physical Exam-GI Vital Signs: Vital Signs Temperature 98.1 F 04/09/17 11:21 Pulse Rate 96 H 04/09/17 13:39 Respiratory Rate 18 04/09/17 13:39 Blood Pressure 132/80 04/09/17 13:39 O2 Sat by Pulse Oximetry (%) 96 04/09/17 13:39 Constitutional: Yes: Well Nourished, No Distress, Anxious Eyes: Yes: Conjunctiva Clear HENT: Yes: Atraumatic, Normocephalic Neck: Yes: Supple Cardiovascular: Yes: Regular Rate and Rhythm Respiratory: Yes: Regular, CTA Bilaterally Gastrointestinal Inspection: No: Distention ...Auscultate: Yes: Normoactive Bowel Sounds ...Palpate: Yes: Soft, Tenderness, Tenderness, Epigastium, Other (Pos Pineda's) . No: Firm/Rigid, Guarding, Hepatomegaly, Mass, Pulsatile Mass, Splenomegaly, Tenderness, Rebound Musculoskeletal: No: Joint Stiffness, Joint Swelling Extremities: Yes: WNL Integumentary: Yes: Incision. No: Jaundice Neurological: Yes: Alert, Oriented Labs: CBC, BMP 04/09/17 11:40 04/09/17 13:05 INR, PTT INR 1.12 (0.82-1.09) 04/09/17 11:40 Laboratory Results - last 24 hr 04/09/17 04/09/17 04/09/17 11:40 11:40 11:40 WBC 7.0 RBC 4.04 Hgb 11.3 D Hct 35.1 MCV 86.9 MCH 28.0 MCHC 32.2 RDW 19.9 H Plt Count 421 MPV 7.5 Neutrophils % 50.4 Lymphocytes % 40.5 H Monocytes % 5.8 Eosinophils % 2.3 Basophils % 1.0 PT with INR 12.30 H INR 1.12 PTT (Actin FS) 30.5 Sodium Cancelled Potassium Cancelled Chloride Cancelled Carbon Dioxide Cancelled Anion Gap Cancelled BUN Cancelled Creatinine Cancelled Creat Clearance w eGFR Cancelled Random Glucose Cancelled Calcium Cancelled Magnesium Cancelled Total Bilirubin Cancelled AST Cancelled ALT Cancelled Alkaline Phosphatase Cancelled Total Protein Cancelled Albumin Cancelled Lipase Cancelled Serum , Qual 04/09/17 04/09/17 13:05 13:05 WBC RBC Hgb Hct MCV MCH MCHC RDW Plt Count MPV Neutrophils % Lymphocytes % Monocytes % Eosinophils % Basophils % PT with INR INR PTT (Actin FS) Sodium 139 Potassium 3.4 L Chloride 107 Carbon Dioxide 24 Anion Gap 8 BUN 10 D Creatinine 0.6 Creat Clearance w eGFR > 60 Random Glucose 85 Calcium 10.4 H Magnesium Total Bilirubin 0.4 AST 9 L D ALT 17 Alkaline Phosphatase 153 H Total Protein 7.5 Albumin 3.7 Lipase 758 H Serum , Qual Negative Imaging - Results Ultrasound: Report Reviewed (Cholelithiasis, biliary sludge) Problem List - Problems (1) Gall stone pancreatitis Assessment/Plan: Mild. Not in distress, or significant discomfort. Afebrile, normal sat on room air. NPO, close observation, aggressive hydration, pain management, vital signs and electrolytes monitoring MRCP and if positive for choledocolithiasis/obstruction, ERCP with sphincterotomy Surgery to reevaluate for cholecystectomy Code(s): K85.10 - BILIARY ACUTE PANCREATITIS WITHOUT NECROSIS OR INFECTION (2) Cholelith Code(s): K80.20 - CALCULUS OF GALLBLADDER W/O CHOLECYSTITIS W/O OBSTRUCTION Qualifiers: Cholelithiasis location: gallbladder Cholecystitis acuity: acute and chronic
[2017-04-09] MEDS ORDERED: KCL 10 MEQ IVPB ONE (14:55)
[2017-04-09] MEDS ORDERED: METOCLOPRAMIDE HCL INJECTION 10 MG/2 ML VIAL ONE (14:55)
[2017-04-09] MEDS ORDERED: ACETAMINOPHEN/CAFFEINE/BUTALBITAL 1 TAB PO ONE (15:18)
--- NOTE | 2017-04-09 15:19 | HP ---
CHIEF COMPLAINT: abdominal pain/vomiting PCP: Dr. Hodge HISTORY OF PRESENT ILLNESS: 46 yr old nepali-speaking woman with migraine headaches recent admission for abdominal pain presented to the ED with nausea, vomiting and RUQ/epigastrium 10/ 10 squeezing abdominal pain progressively worsening for past 5 days. a/w fever, chills and vomiting with every meal. occasionally notes bright red blood mixed in vomit. Previous admission 04/02-04/03, discharged with recommendation for elective cholecystectomy ER course was notable for: (1) ultrasound (2) Dr. Prescott consulted, dr. tompkins (3) morphine Recent Travel: none PAST MEDICAL HISTORY: mirgraine PAST SURGICAL HISTORY: tonsilectomy age 8 x2, tubal ligation Social History: Smoking: denies Alcohol:denies Drugs: denies Family History: mother with cholecytectomy due to cholelithiasis, father with HTN/"cardiac problems" Allergies No Known Allergies Allergy (Verified 04/02/17 02:03) HOME MEDICATIONS: Fiorecet prn Home Medications Medication Instructions Recorded Pantoprazole Sodium [Protonix -] 40 mg PO DAILY #30 cap 04/03/17 REVIEW OF SYSTEMS CONSTITUTIONAL: Present: fever, chills, Absent: diaphoresis, generalized weakness, malaise, loss of appetite, weight change HEENT: Absent: rhinorrhea, nasal congestion, throat pain, throat swelling, difficulty swallowing, mouth swelling, ear pain, eye pain, visual changes CARDIOVASCULAR: Present: palpitations, Absent: chest pain, syncope, irregular heart rate, lightheadedness, peripheral edema RESPIRATORY: Absent: cough, shortness of breath, dyspnea with exertion, orthopnea, wheezing, stridor, GASTROINTESTINAL: Present: abdominal pain,nausea, vomiting,constipation, Absent: abdominal distension, diarrhea, melena, hematochezia GENITOURINARY: Absent: dysuria, frequency, urgency, hesitancy, hematuria, flank pain, genital pain MUSCULOSKELETAL: Present: right ankle joint swelling Absent: myalgia, arthralgia,, back pain, neck pain SKIN: Absent: rash, itching, pallor HEMATOLOGIC/IMMUNOLOGIC: Absent: easy bleeding, easy bruising, lymphadenopathy, frequent infections ENDOCRINE: Absent: unexplained weight gain, unexplained weight loss, heat intolerance, cold intolerance NEUROLOGIC: Absent: headache, focal weakness or paresthesias, dizziness, unsteady gait, seizure, mental status changes, bladder or bowel incontinence PHYSICAL EXAMINATION Vital Signs - 24 hr 04/09/17 04/09/17 11:21 13:39 Temperature 98.1 F Pulse Rate 118 H Pulse Rate [ 96 H Right Radial] Respiratory 18 18 Rate Blood Pressure 149/88 Blood Pressure 132/80 [Left Arm] O2 Sat by Pulse 99 96 Oximetry (%) GENERAL: Awake, alert, and fully oriented, in no acute distress. HEAD: Normal with no signs of trauma. EYES: Pupils equal, round and reactive to light, extraocular movements intact, sclera anicteric, conjunctiva clear. No lid lag. EARS, NOSE, THROAT:oropharynx clear without exudates. Moist mucous membranes. no sinus tenderness, no rhinorrhea NECK: Normal range of motion, supple without lymphadenopathy, JVD, or masses. LUNGS: Breath sounds equal, clear to auscultation bilaterally. No wheezes, and no crackles. No accessory muscle use. HEART: Regular rate and rhythm, normal S1 and S2, no rubs or gallops, faint systolic murmur heard best in left 2nd intercostal space. ABDOMEN: Soft, tender in epigastrium and RUQ and RLQ, not distended, hypoactive bowel sounds, no guarding, no rebound, no masses. No hepatomegaly or splenomegaly. rovsings negative, castro's negative MUSCULOSKELETAL: decreased rom in right ankle. No bony deformities or tenderness. No CVA tenderness. UPPER EXTREMITIES: 2+ radial pulses, warm, well-perfused. No cyanosis. No clubbing. No peripheral edema. LOWER EXTREMITIES: 2+ dp pulses, warm, well-perfused. No calf tenderness. No peripheral edema. swelling in right ankle/ NEUROLOGICAL: Cranial nerves II-XII intact. Normal speech. facial symmetry. 5/ 5 b/l handgrip. 5/5 hip extension/flexion, 5/5 knee extension and flexion. decreased dorsi/plantar flexion in right ankle secondary to pain. 5/5 dorsi/ plantar flexion on left ankle. PSYCHIATRIC: Cooperative. Good eye contact. Appropriate mood and affect. SKIN: Warm, dry, normal turgor, no rashes or lesions noted, normal capillary refill. Laboratory Results - last 24 hr 04/09/17 04/09/17 04/09/17 11:40 11:40 11:40 WBC 7.0 RBC 4.04 Hgb 11.3 D Hct 35.1 MCV 86.9 MCH 28.0 MCHC 32.2 RDW 19.9 H Plt Count 421 MPV 7.5 Neutrophils % 50.4 Lymphocytes % 40.5 H Monocytes % 5.8 Eosinophils % 2.3 Basophils % 1.0 PT with INR 12.30 H INR 1.12 PTT (Actin FS) 30.5 Sodium Cancelled Potassium Cancelled Chloride Cancelled Carbon Dioxide Cancelled Anion Gap Cancelled BUN Cancelled Creatinine Cancelled Creat Clearance w eGFR Cancelled Random Glucose Cancelled Calcium Cancelled Magnesium Cancelled Total Bilirubin Cancelled AST Cancelled ALT Cancelled Alkaline Phosphatase Cancelled Total Protein Cancelled Albumin Cancelled Lipase Cancelled Serum , Qual 04/09/17 04/09/17 13:05 13:05 WBC RBC Hgb Hct MCV MCH MCHC RDW Plt Count MPV Neutrophils % Lymphocytes % Monocytes % Eosinophils % Basophils % PT with INR INR PTT (Actin FS) Sodium 139 Potassium 3.4 L Chloride 107 Carbon Dioxide 24 Anion Gap 8 BUN 10 D Creatinine 0.6 Creat Clearance w eGFR > 60 Random Glucose 85 Calcium 10.4 H Magnesium Total Bilirubin 0.4 AST 9 L D ALT 17 Alkaline Phosphatase 153 H Total Protein 7.5 Albumin 3.7 Lipase 758 H Serum , Qual Negative ASSESSMENT/PLAN: 46 yr old woman with hx of migraines, abdominal pain with recent admission for abdominal pain admitted for persistent abdominal pain/vomiting likely due to cholecystitis. #Cholecystitisgiven RUQ pain on physical exam and cholelithiasis on u/s. - GI consulted, dr. Prescott rec to complete MRCP - Surgery, Dr. Perry consulted for surgical eval given persistance of pain and vomiting will likely need cholecystectomy #Pancreatitis likely due to cholelithiasis(due to pain/lipase) - lactated ringers 125cc/hr - npo except for meds - iv 4mg morphine for pain control #Migraines - fiorcet q6hr prn #hypokalemia - likely due to vomiting - 40meq ivpb - repeat labs in the morning, bmp and Mg #Ankle sprain - was told there was no fracture - can have ice prn for swelling #Constipation - if no bowel movement by tomorrow, will start bowel regimen with colace/senna or miralax prn #dvt: lovenox #Diet: NPO Visit type - Emergency Visit Emergency Visit: Yes ED Registration Date: 04/09/17 Care time: The patient presented to the Emergency Department on the above date and was hospitalized for further evaluation of their emergent condition. - New Patient This patient is new to me today: Yes Date on this admission: 04/09/17 - Critical Care Critical Care patient: No
[2017-04-09] MEDS ORDERED: ACETAMINOPHEN/CAFFEINE/BUTALBITAL 1 TAB ONE (15:29)
[2017-04-09] MEDS ORDERED: LACTATED RINGERS SOLUTION 1,000 ML IV SCH (15:30)
[2017-04-09] MEDS ORDERED: KCL 10 MEQ IVPB 100 ML IVPB ONE (15:39)
[2017-04-09] MEDS ORDERED: morphine CARPU-JECT 4 MG/1 ML DISP.SYRIN IVPUSH PRN (17:39)
--- NOTE | 2017-04-09 17:43 | PN ---
Teaching Attending Note Name of Resident: Andrew Gómez ATTENDING PHYSICIAN STATEMENT I saw and evaluated the patient. I reviewed the resident's note and discussed the case with the resident. I agree with the resident's findings and plan as documented. SUBJECTIVE:46yo F with PMH migraines presented to the ER with epigastric pain. Pain is constant, strong pain 8/10 radiating like a band across her upper abdomen and radiating to the back. assoc with nausea, vomiting and anorexia. pt was here last week with similar pain, was told she had gallstones and to follow up for elective cholecysectomy. pt got worse several days later and been progressively worsening. denies CP, SOB, fever, chills. last BM 5 days ago OBJECTIVE: Last Vital Signs Temp Pulse Resp BP Pulse Ox 98.1 F 96 H 18 132/80 96 04/09/17 11:21 04/09/17 13:39 04/09/17 13:39 04/09/17 13:39 04/09/17 13:39 General NAD CV S1 S2 RRR +murmur Lungs CTA B/L no wheezing/rales/rhonchi Abdomen diffuse tenderness +guarding. normoactive BS. no distention Extremities non pitting edema to R foot, mildly tender ASSESSMENT AND PLAN: 46yo F with PMH migraines presented with epigastric pain 1. Gallstone Pancreatitis- medicine admission. elevated lipase in setting of clinical story suggestive of acute pancreatitis. NPO, LR, pain and nausea control. will need MRCP to r/o choleodocholithasis. will need cholecystectomy this admission. Consult GI and surgery 2. R foot pain and tenderness- s/p mechanical fall 1 week ago. was told she had ankle sprain. slowly improving. able to take several steps on the foot 3. Migraines- fiorcet prn 4. Hypokalemia- KCl 40meq/ check Mg 5. DVT ppx- lovenox
[2017-04-09] MEDS ORDERED: SODIUM CHLORIDE 1,000 ML IV SCH (17:45)
[2017-04-09] MEDS ORDERED: METOCLOPRAMIDE HCL INJECTION 10 MG/2 ML VIAL IVPB PRN (18:11)
[2017-04-09 18:19] VITALS: BMI 36.0
[2017-04-09] MEDS: ENOXAPARIN NA (PORCINE) 40 MG/0.4 ML DISP.SYRIN SQ SCH (18:37)
[2017-04-09] MEDS: LACTATED RINGERS SOLUTION 1,000 ML IV SCH (18:40)
[2017-04-09] MEDS: ACETAMINOPHEN/CAFFEINE/BUTALBITAL 1 TAB PO PRN (21:07)
[2017-04-10] MEDS: morphine CARPU-JECT 2 MG/1 ML DISP.SYRIN IVPUSH PRN ×3 (05:45→16:00)
[2017-04-10 07:41] LABS: BASOPHIL 1.3 % (0-2.0); EOSINOPHIL 2.8 % (0-4.5); MCHC 32.1 g/dl (32.0-36.0); MEAN CELL VOLUME 87.2 fl (80-96); MEAN PLT VOLUME 7.3 fl (7.5-11.1); NEUTROPHILS 38.8 % (42.8-82.8); PLATELET COUNT 391 K/MM3 (134-434); RDW 20.1 % (11.6-15.6); WHITE BLOOD COUNT 6.6 K/mm3 (4.0-10.0)
[2017-04-10 08:12] LABS: GLUCOSE,RANDOM 82 mg/dL (74-106)
[2017-04-10 08:13] LABS: ANION GAP 9 (8-16); CALCIUM 10.1 mg/dL (8.5-10.1); CO2 27 mmol/L (21-32); CREATININE 0.5 mg/dL (0.55-1.02); MAGNESIUM 1.8 mg/dL (1.8-2.4)
[2017-04-10] MEDS: ACETAMINOPHEN/CAFFEINE/BUTALBITAL 1 TAB PO PRN ×2 (08:37→19:55)
[2017-04-10] MEDS: ENOXAPARIN NA (PORCINE) 40 MG/0.4 ML DISP.SYRIN SQ SCH (09:54)
--- NOTE | 2017-04-10 12:55 | PN ---
Progress Note (short form) - Note Progress Note: Subjective: no fever or chills , has abd pain in epigastric and radiates to b/l upper quadrants. NO N/V . has a migraine CHERRY Objective: Vital Signs: Last Vital Signs Temp Pulse Resp BP Pulse Ox 97.8 F 93 H 18 147/89 96 04/10/17 08:44 04/10/17 08:44 04/10/17 08:44 04/10/17 08:44 04/09/17 15:16 Laboratory Results - last 24 hr 04/09/17 04/09/17 04/09/17 11:40 13:05 13:05 WBC RBC Hgb Hct MCV MCH MCHC RDW Plt Count MPV Neutrophils % Lymphocytes % Monocytes % Eosinophils % Basophils % PT with INR 12.30 H INR 1.12 PTT (Actin FS) 30.5 Sodium 139 Potassium 3.4 L Chloride 107 Carbon Dioxide 24 Anion Gap 8 BUN 10 D Creatinine 0.6 Creat Clearance w eGFR > 60 Random Glucose 85 Calcium 10.4 H Magnesium Total Bilirubin 0.4 AST 9 L D ALT 17 Alkaline Phosphatase 153 H Total Protein 7.5 Albumin 3.7 Lipase 758 H Serum , Qual Negative 04/10/17 04/10/17 07:25 07:25 WBC 6.6 RBC 3.66 Hgb 10.2 L Hct 31.9 L MCV 87.2 MCH 28.0 MCHC 32.1 RDW 20.1 H Plt Count 391 MPV 7.3 L Neutrophils % 38.8 L D Lymphocytes % 50.1 H D Monocytes % 7.0 Eosinophils % 2.8 Basophils % 1.3 PT with INR INR PTT (Actin FS) Sodium 140 Potassium 3.7 Chloride 104 Carbon Dioxide 27 Anion Gap 9 BUN 5 L D Creatinine 0.5 L Creat Clearance w eGFR Random Glucose 82 Calcium 10.1 Magnesium 1.8 Total Bilirubin AST ALT Alkaline Phosphatase Total Protein Albumin Lipase Serum , Qual Physical Exam: NAD Cv : RRR, 3/6 SM at [facility], 3/6 SM at [place] Lungs : CTAB ext : pipo debbie Abd : soft, ND, TTP in epigastric area, RUQ, LUQ. Neg Pineda's , NL BS . Assessment/Plan: 46 y/o lady with h/o cholelthiasis , and migraines with recent admission during which acute cholecystitis was r/o , who presented with abd pain and was found to have acute gall stone pancreatitis 1- Acute gall stone pancreatitis: no evidence of CBD distention or stones. cont to have ABD pain requiring frequent morphine use MRI /US with no evidence of cholecytitis - check LFTS for today - Keep NPO, due to severity of pain, will not feed yet - cont LR @ 125cc/hr - cont morphine PRN - no need for Abx as there is no evidence of acute cholecytitis - Surgery consult pending for CCY this admission - appreciate GI input - monitor electrolytes, order phos level - start PPI 2- Migraines: cont PRN fioricet and currently on morphine and IVF on amytriptilin as otu pt bud dose is not confirmed . I called her pharmacy and confirmed meds. no TCA HLOC Visit type - Emergency Visit Emergency Visit: Yes ED Registration Date: 04/09/17 Care time: The patient presented to the Emergency Department on the above date and was hospitalized for further evaluation of their emergent condition. - New Patient This patient is new to me today: Yes Date on this admission: 04/10/17 - Critical Care Critical Care patient: No
[2017-04-10] MEDS: LACTATED RINGERS SOLUTION 1,000 ML IV SCH ×2 (13:02→23:11)
[2017-04-10 13:06] LABS: ALBUMIN 3.6 g/dl (3.4-5.0); BILIRUBIN,DIRECT 0.1 mg/dL (0.0-0.2); BILIRUBIN,TOTAL 0.3 mg/dL (0.2-1.0); PHOSPHOROUS 1.8 mg/dL (2.5-4.9); SGOT/AST 11 U/L (15-37); SGPT/ALT 15 U/L (12-78); TOT PROT 7.1 g/dl (6.4-8.2)
[2017-04-10 13:07] LABS: ALK PHOS 143 U/L (45-117)
[2017-04-10] MEDS ORDERED: PT OWN MED DRAWER 7, Y5N ONE (14:40)
[2017-04-10] MEDS: PANTOPRAZOLE SODIUM 40 MG in SODIUM CHLORIDE 100 ML IVPB SCH (14:42)
--- NOTE | 2017-04-10 19:27 | EKG ---
Test Reason : Blood Pressure : / mmHG Vent. Rate : 094 BPM Atrial Rate : 094 BPM P-R Int : 142 ms QRS Dur : 078 ms QT Int : 342 ms P-R-T Axes : 058 054 052 degrees QTc Int : 427 ms NORMAL SINUS RHYTHM POSSIBLE LEFT ATRIAL ENLARGEMENT LEFT VENTRICULAR HYPERTROPHY NONSPECIFIC ST AND T WAVE ABNORMALITY ABNORMAL ECG WHEN COMPARED WITH ECG OF 02-APR-2017 11:20, SLIGHT ST SEGMENT HIGH TAKE OF IN V2- V3. WOULD RECOMMEND CLINICAL CORRELATION AND REPEAT TRACING Confirmed by ABNER DEAL MD ([id number]) on 04/10/2017 7:27:31 PM Referred By: Confirmed By:ABNER DEAL MD
[2017-04-11] MEDS: ACETAMINOPHEN/CAFFEINE/BUTALBITAL 1 TAB PO PRN ×3 (05:24→18:34)
[2017-04-11 08:04] LABS: BASOPHIL 0.9 % (0-2.0); EOSINOPHIL 3.7 % (0-4.5); MCH 28.1 pg (25.7-33.7); MCHC 32.1 g/dl (32.0-36.0); MEAN CELL VOLUME 87.5 fl (80-96); MEAN PLT VOLUME 7.3 fl (7.5-11.1); NEUTROPHILS 55.5 % (42.8-82.8); PLATELET COUNT 345 K/MM3 (134-434); RDW 19.9 % (11.6-15.6); WHITE BLOOD COUNT 5.7 K/mm3 (4.0-10.0)
[2017-04-11] MEDS: LACTATED RINGERS SOLUTION 1,000 ML IV SCH ×2 (08:19→12:20)
[2017-04-11] MEDS: ENOXAPARIN NA (PORCINE) 40 MG/0.4 ML DISP.SYRIN SQ SCH (10:06)
[2017-04-11] MEDS: PANTOPRAZOLE SODIUM 40 MG in SODIUM CHLORIDE 100 ML IVPB SCH (11:11)
--- NOTE | 2017-04-11 11:33 | PN ---
Progress Note (short form) - Note Progress Note: Subjective: Abd pain has improved. SOB when she ambulates . nO SOB at rest. Objective: Last Vital Signs Temp Pulse Resp BP Pulse Ox 98.2 F 102 H 18 151/90 96 04/11/17 08:00 04/11/17 08:00 04/11/17 08:00 04/11/17 08:00 04/10/17 09:00 Laboratory Results - last 24 hr 04/10/17 04/10/17 04/10/17 07:25 12:50 12:50 WBC RBC Hgb Hct MCV MCH MCHC RDW Plt Count MPV Neutrophils % Lymphocytes % Monocytes % Eosinophils % Basophils % Sodium 140 Potassium 3.7 Chloride 104 Carbon Dioxide 27 Anion Gap 9 BUN 5 L D Creatinine 0.5 L Random Glucose 82 Calcium 10.1 Phosphorus 1.8 L Cancelled Magnesium 1.8 Total Bilirubin 0.3 D Cancelled Direct Bilirubin 0.1 Cancelled AST 11 L D Cancelled ALT 15 Cancelled Alkaline Phosphatase 143 H Cancelled Total Protein 7.1 Cancelled Albumin 3.6 Cancelled 04/11/17 04/11/17 07:30 07:30 WBC 5.7 RBC 3.51 L Hgb 9.9 L Hct 30.7 L MCV 87.5 MCH 28.1 MCHC 32.1 RDW 19.9 H Plt Count 345 MPV 7.3 L Neutrophils % 55.5 D Lymphocytes % 32.9 D Monocytes % 7.0 Eosinophils % 3.7 Basophils % 0.9 Sodium Potassium Chloride Carbon Dioxide Anion Gap BUN Creatinine Random Glucose Calcium Phosphorus 2.2 L D Magnesium Total Bilirubin Direct Bilirubin AST ALT Alkaline Phosphatase Total Protein Albumin Physical Exam: NAD Cv : RRR, 3/6 SM at [facility], 3/6 SM at [place]. No JVD Lungs : CTAB ext : pipo debbie Abd : soft, ND, TTP in epigastric area, and , LUQ. Neg Pineda's , NL BS . Assessment/Plan: 46 y/o lady with h/o cholelthiasis , and migraines with recent admission during which acute cholecystitis was r/o , who presented with abd pain and was found to have acute gall stone pancreatitis 1- Acute gall stone pancreatitis: no evidence of CBD distention or stones. Abd pain has improved , adn pt is hungry MRI /US with no evidence of cholecytitis - check LFTS and electrolytes tomorrow - Start clears for lunch - Decrease IVF since she has SOB - cont morphine PRN - no need for Abx as there is no evidence of acute cholecytitis - Surgery consult pending for CCY this admission - Appreciate GI input - replete phos - Cont PPI - check Cxray due toevaluate for pulm vascular congestion 2- Migraines: cont PRN fioricet and currently on morphine and IVF 3- DVT px : Lovenox Visit type - Emergency Visit Emergency Visit: Yes ED Registration Date: 04/09/17 Care time: The patient presented to the Emergency Department on the above date and was hospitalized for further evaluation of their emergent condition. - New Patient This patient is new to me today: No - Critical Care Critical Care patient: No
[2017-04-11] MEDS ORDERED: POTASSIUM PHOSPHATE 15 MM in SODIUM CHLORIDE 250 ML IVPB ONE (11:45)
[2017-04-12] MEDS: LACTATED RINGERS SOLUTION 1,000 ML IV SCH ×2 (04:06→12:23)
--- NOTE | 2017-04-12 08:44 | PN ---
Progress Note, Physician History of Present Illness: Comfortable, RUQ pain present but improved. Chart reviewed. - Current Medication List Current Medications: Active Medications Acetaminophen/Butalbital/Caffeine (Fioricet -) 1 tablet PO Q6H PRN PRN Reason: FEVER OR PAIN Last Admin: 04/11/17 18:34 Dose: 1 tablet Enoxaparin Sodium (Lovenox -) 40 mg SQ DAILY [facility] Last Admin: 04/11/17 10:06 Dose: 40 mg Pantoprazole Sodium 40 mg/ (Sodium Chloride) 100 mls @ 200 mls/hr IVPB DAILY [facility] Last Admin: 04/11/17 11:11 Dose: 200 mls/hr Lactated Ringer's (Lactated Ringers Solution) 1,000 mls @ 100 mls/hr IV ASDIR [facility] Last Admin: 04/12/17 04:06 Dose: 100 mls/hr Metoclopramide HCl (Reglan Injection -) 10 mg IVPB Q6H PRN PRN Reason: NAUSEA AND/OR VOMITING Morphine Sulfate (Morphine Injection -) 4 mg IVPUSH Q4H PRN PRN Reason: PAIN Last Admin: 04/10/17 16:00 Dose: 4 mg - Objective Vital Signs: Vital Signs Temperature 98.7 F 04/12/17 02:00 Pulse Rate 103 H 04/12/17 02:00 Respiratory Rate 18 04/12/17 02:00 Blood Pressure 153/90 04/12/17 02:00 O2 Sat by Pulse Oximetry (%) 97 04/11/17 21:00 Constitutional: Yes: No Distress, Calm Eyes: Yes: Conjunctiva Clear Cardiovascular: Yes: Regular Rate and Rhythm Respiratory: Yes: Regular Gastrointestinal: Yes: Normal Bowel Sounds, Soft, Tenderness, Tenderness, Epigastrium. No: Ascites, Distention, Palpable Mass, Pulsatile Mass, Rectal Bleeding, Tenderness, Rebound, Vomiting Labs: CBC, BMP 04/11/17 07:30 04/10/17 07:25 INR, PTT INR 1.12 (0.82-1.09) 04/09/17 11:40 Laboratory Last Values WBC 5.7 K/mm3 (4.0-10.0) 04/11/17 07:30 RBC 3.51 M/mm3 (3.60-5.2) L 04/11/17 07:30 Hgb 9.9 GM/dL (10.7-15.3) L 04/11/17 07:30 Hct 30.7 % (32.4-45.2) L 04/11/17 07:30 MCV 87.5 fl (80-96) 04/11/17 07:30 MCH 28.1 pg (25.7-33.7) 04/11/17 07:30 MCHC 32.1 g/dl (32.0-36.0) 04/11/17 07:30 RDW 19.9 % (11.6-15.6) H 04/11/17 07:30 Plt Count 345 K/MM3 (134-434) 04/11/17 07:30 MPV 7.3 fl (7.5-11.1) L 04/11/17 07:30 Neutrophils % 55.5 % (42.8-82.8) D 04/11/17 07:30 Lymphocytes % 32.9 % (8-40) D 04/11/17 07:30 Monocytes % 7.0 % (3.8-10.2) 04/11/17 07:30 Eosinophils % 3.7 % (0-4.5) 04/11/17 07:30 Basophils % 0.9 % (0-2.0) 04/11/17 07:30 PT with INR 12.30 SEC (9.98-11.88) H 04/09/17 11:40 INR 1.12 (0.82-1.09) 04/09/17 11:40 PTT (Actin FS) 30.5 SECONDS (26.9-34.4) 04/09/17 11:40 Sodium 140 mmol/L (136-145) 04/10/17 07:25 Potassium 3.7 mmol/L (3.5-5.1) 04/10/17 07:25 Chloride 104 mmol/L (98-107) 04/10/17 07:25 Carbon Dioxide 27 mmol/L (21-32) 04/10/17 07:25 Anion Gap 9 (8-16) 04/10/17 07:25 BUN 5 mg/dL (7-18) L D 04/10/17 07:25 Creatinine 0.5 mg/dL (0.55-1.02) L 04/10/17 07:25 Creat Clearance w eGFR > 60 (>60) 04/09/17 13:05 Random Glucose 82 mg/dL (74-106) 04/10/17 07:25 Calcium 10.1 mg/dL (8.5-10.1) 04/10/17 07:25 Phosphorus 2.2 mg/dL (2.5-4.9) L D 04/11/17 07:30 Magnesium 1.8 mg/dL (1.8-2.4) 04/10/17 07:25 Total Bilirubin 0.3 mg/dL (0.2-1.0) D 04/10/17 07:25 Direct Bilirubin Cancelled 04/10/17 12:50 AST 11 U/L (15-37) L D 04/10/17 07:25 ALT 15 U/L (12-78) 04/10/17 07:25 Alkaline Phosphatase 143 U/L (45-117) H 04/10/17 07:25 Total Protein 7.1 g/dl (6.4-8.2) 04/10/17 07:25 Albumin 3.6 g/dl (3.4-5.0) 04/10/17 07:25 Lipase 758 U/L (73-393) H 04/09/17 13:05 Serum , Qual Negative 04/09/17 13:05 Vital Signs - 24 hr 04/11/17 04/11/17 04/11/17 09:00 15:36 18:00 Temperature 98.0 F 98.4 F Pulse Rate 114 H 98 H Respiratory 18 20 Rate Blood Pressure 140/90 140/90 O2 Sat by Pulse 97 Oximetry (%) 04/11/17 04/12/17 21:00 02:00 Temperature 98.7 F Pulse Rate 103 H Respiratory 20 18 Rate Blood Pressure 153/90 O2 Sat by Pulse 97 Oximetry (%) Active Orders - 24 Hr 04/11/17 10:03 Missing Dose Routine 04/11/17 11:30 Lactated Ringers Solution 1,000 ml IV ASDIR 04/11/17 Lunch Clear Liquid [DT] 04/12/17 07:40 K+ [POTASSIUM] Routine Liver Profile [HEPATIC FUNCTION PANEL] Routine MAGNESIUM Routine PHOSPHOROUS Routine Problem List - Problems (1) Gall stone pancreatitis Assessment/Plan: Surgical evaluation for cholesystectomy Code(s): K85.10 - BILIARY ACUTE PANCREATITIS WITHOUT NECROSIS OR INFECTION (2) Cholelith Code(s): K80.20 - CALCULUS OF GALLBLADDER W/O CHOLECYSTITIS W/O OBSTRUCTION Qualifiers: Cholelithiasis location: gallbladder Cholecystitis acuity: acute and chronic Imaging - Results Ultrasound: Report Reviewed MRI: Report Reviewed
[2017-04-12 09:13] LABS: ALBUMIN 3.5 g/dl (3.4-5.0); BILIRUBIN,DIRECT < 0.1 mg/dL (0.0-0.2); SGPT/ALT 17 U/L (12-78)
[2017-04-12 09:14] LABS: ALK PHOS 162 U/L (45-117); BILIRUBIN,TOTAL 0.5 mg/dL (0.2-1.0); TOT PROT 7.3 g/dl (6.4-8.2)
[2017-04-12 09:19] LABS: SGOT/AST 20 U/L (15-37)
[2017-04-12] MEDS ORDERED: PT OWN MED DRAWER 7, Y5N ONE (09:37)
[2017-04-12] MEDS: PANTOPRAZOLE SODIUM 40 MG in SODIUM CHLORIDE 100 ML IVPB SCH (09:42)
[2017-04-12] MEDS: ENOXAPARIN NA (PORCINE) 40 MG/0.4 ML DISP.SYRIN SQ SCH (09:42)
[2017-04-12] MEDS ORDERED: diphenhydrAMINE HCL 25 MG CAPSULE (FP) PO PRN (10:23)
[2017-04-12] MEDS ORDERED: oxyCODONE HCL 5 MG TABLET PO PRN (10:23)
[2017-04-12 10:25] LABS: PHOSPHOROUS 2.3 mg/dL (2.5-4.9)
[2017-04-12 10:26] LABS: MAGNESIUM 1.8 mg/dL (1.8-2.4)
[2017-04-12] MEDS ORDERED: DOCUSATE SODIUM 100 MG CAPSULE (FP) PO PRN (11:30)
--- NOTE | 2017-04-12 14:03 | PN ---
Teaching Attending Note Name of Resident: Brayden Johnson ATTENDING PHYSICIAN STATEMENT I saw and evaluated the patient. I reviewed the resident's note and discussed the case with the resident. I agree with the resident's findings and plan as documented. SUBJECTIVE: no fever or chills. has mild CHERRY , up and down . Abd pain is slightly better. contto have SOB with ambulation OBJECTIVE: NAD Cv: RRR, 3/6 SM at [facility], 3/6 SM at [place]. No JVD . Radiation of murmur to carotids Lungs : CTAB ext : no edema Abd : soft, ND, TTP in epigastric area, and , LUQ. Neg Pineda's , NL BS . No rebound tenderness Assessment/Plan: 46 y/o lady with h/o cholelthiasis , and migraines with recent admission during which acute cholecystitis was r/o , who presented with abd pain and was found to have acute gall stone pancreatitis 1- Acute gall stone pancreatitis: no evidence of CBD distention or stones. Abd pain has improved MRI /US with no evidence of cholecytitis . ALK phos is slightly increasing -follow liver function - advance diet to full liquids, hopefully low fat diet tomorrow - Decrease IVF again - dc morphine and give oxycodone - no need for Abx as there is no evidence of acute cholecytitis - Surgery consult pending for CCY this admission is still pending - Appreciate GI input - Cont PPI - monitor lk phos, if LFTS worsen will repeat US 2- Migraines: cont PRN fioricet and add standing benadryl for now 3- DVT px : Lovenox
[2017-04-12] MEDS: ACETAMINOPHEN/CAFFEINE/BUTALBITAL 1 TAB PO PRN (16:17)
--- NOTE | 2017-04-12 18:40 | PN ---
Physical Exam: SUBJECTIVE: Patient seen and examined. No acute events overnight. Pt reports some moderate abdominal pain that is 4/10 and a migraine that is 8/10. She reports tolerating a clear liquid diet well without nausea or emesis. She endorses constipation, and her last BM was 4 days ago. OBJECTIVE: Vital Signs Period Temp Pulse Resp BP Sys/Briggs Pulse Ox Last 24 Hr 98.3 F-98.7 F 93-103 18-20 137-153/83-98 97 GENERAL: The patient is awake, alert, and fully oriented, in no acute distress. HEAD: Normal with no signs of trauma. EYES: PERRL, extraocular movements intact, sclera anicteric, conjunctiva clear. No ptosis. ENT: Ears normal, nares patent, oropharynx clear without exudates, moist mucous membranes. NECK: Trachea midline, full range of motion, supple. LUNGS: Breath sounds equal, clear to auscultation bilaterally, no wheezes, no crackles, no accessory muscle use. HEART: tachycardic, systolic murmur heard best over the right sternal border ABDOMEN: soft, diffusely tender but worse over the upper quadrants, ND, normoactive BS EXTREMITIES: 2+ pulses, warm, well-perfused, no edema. NEUROLOGICAL: Cranial nerves II through XII grossly intact. Normal speech, gait not observed. PSYCH: Normal mood, normal affect. SKIN: Warm, dry, normal turgor, no rashes or lesions noted Laboratory Results - last 24 hr 04/12/17 04/12/17 07:40 07:40 Potassium Cancelled 3.7 Phosphorus Cancelled 2.3 L Magnesium Cancelled 1.8 Total Bilirubin 0.5 D Direct Bilirubin < 0.1 AST 20 D ALT 17 Alkaline Phosphatase 162 H Total Protein 7.3 Albumin 3.5 Active Medications Generic Name Dose Route Start Last Admin Trade Name Freq PRN Reason Stop Dose Admin Acetaminophen/Butalbital/Caffeine 1 tablet 04/09/17 18:05 04/12/17 16:17 Fioricet - PO 1 tablet Q6H PRN Administration FEVER OR PAIN Diphenhydramine HCl 50 mg 04/12/17 11:30 04/12/17 17:26 Benadryl Injection - IVPUSH 50 mg Q6H [facility] Administration Docusate Sodium 100 mg 04/12/17 11:30 04/12/17 16:19 Colace - PO 100 mg BID PRN Administration CONSTIPATION Enoxaparin Sodium 40 mg 04/09/17 18:15 04/12/17 09:42 Lovenox - SQ 40 mg DAILY [facility] Administration Pantoprazole Sodium 40 mg/ 100 mls @ 200 mls/hr 04/10/17 13:15 04/12/17 09:42 Sodium Chloride IVPB 200 mls/hr DAILY [facility] Administration Lactated Ringer's 1,000 mls @ 75 mls/hr 04/12/17 10:21 04/12/17 12:23 Lactated Ringers Solution IV 75 mls/hr ASDIR [facility] Administration Metoclopramide HCl 10 mg 04/09/17 18:11 Reglan Injection - IVPB Q6H PRN NAUSEA AND/OR VOMITING Oxycodone HCl 5 mg 04/12/17 10:23 04/12/17 12:21 Roxicodone - PO 5 mg Q6H PRN Administration PAIN ASSESSMENT/PLAN: 46F w/ hx of cholelithiasis, migraines, esophagitis, and recent admission for a rule/out cholecystitis who presented with abdominal pain, was found to have acute gallstone pancreatitis. #Acute gallstone pancreatitis- improving -advance diet as tolerated, will change to full liquids today -LR decreased to 75 -pain control changed from morphine to percocet 5 -GI and surgery on board, appreciate recs #migraines -continue fioricet -add standing IV benadryl, will change to PRN sal if controlling pain well #Elevated ALP -likely due to gallstone pancreatitis -f/u GGT to ensure it is hepatic related -trend. If high sal, consider repeat US abdomen #Tachycardia -likely 2/2 headache and abdominal pain -monitor #constipation -started colace -monitor #Murmur -echo: trace MR and TR -f/u cardiology as outpt #FEN/PPx -LR at 75 -electrolytes wnl -full liquid diet -pantoprazole 40 -lovenox 40 -Brayden Johnson MD PGY1 Visit type - Emergency Visit Emergency Visit: Yes ED Registration Date: 04/09/17 Care time: The patient presented to the Emergency Department on the above date and was hospitalized for further evaluation of their emergent condition. - New Patient This patient is new to me today: Yes Date on this admission: 04/12/17 - Critical Care Critical Care patient: No
[2017-04-13] MEDS: LACTATED RINGERS SOLUTION 1,000 ML IV SCH ×2 (05:12→19:53)
[2017-04-13 08:40] LABS: BASOPHIL 0.7 % (0-2.0); EOSINOPHIL 1.5 % (0-4.5); MCH 28.4 pg (25.7-33.7); MCHC 32.7 g/dl (32.0-36.0); MEAN CELL VOLUME 86.7 fl (80-96); MEAN PLT VOLUME 7.1 fl (7.5-11.1); NEUTROPHILS 62.4 % (42.8-82.8); PLATELET COUNT 429 K/MM3 (134-434); RDW 20.2 % (11.6-15.6); WHITE BLOOD COUNT 6.5 K/mm3 (4.0-10.0)
[2017-04-13 09:03] LABS: ALBUMIN 3.5 g/dl (3.4-5.0); ANION GAP 12 (8-16); BILIRUBIN,TOTAL 0.5 mg/dL (0.2-1.0); CALCIUM 10.5 mg/dL (8.5-10.1); CO2 24 mmol/L (21-32); CREATININE 0.5 mg/dL (0.55-1.02); GLUCOSE,RANDOM 80 mg/dL (74-106); SGOT/AST 16 U/L (15-37); SGPT/ALT 18 U/L (12-78); TOT PROT 7.3 g/dl (6.4-8.2)
[2017-04-13 09:10] LABS: ALK PHOS 166 U/L (45-117)
--- NOTE | 2017-04-13 09:24 | CONSULT ---
- Consultation REQUESTING PROVIDER: Kalia Henson - General Surgery CONSULT REQUEST: We have been asked to surgically evaluate this patient for gallstone pancreatitis. PCP: Ricardo REYNA [employer]: [employer] Of Publications [id number] (Sinhala) HPI: Called to audrey 46 yo female admitted with RUQ abd pain assoictaed with post -prandial nausea and vomiting. PMHX as noted below. Patient last admitted to hospital 04/02/17 with same complaint. During that visit she had U/S and CT scan which confirmed GS Pancreatitis. Seen and evaluated by GI/Dr. Prescott who performed an EGD and confirmed gastritis/ esophagitis without pathology. Currently, patient resting in position of comfort. Tolerating PO clears. She is oob and ambulating without difficulty. Voiding spontaneously. Denies n/v/f/c, CP or SOB. GI/Dr. Prescott consult/input appreciated. MRCP shows no ductal dilation. PMHx: Cholecystitis, gastritis/esophagitis PSHx: Home Medications 3 Pantoprazole Sodium [Protonix -] 40 mg PO DAILY #30 cap 04/03/17 Acetaminophen/Caffeine/Butalb 1 tab PO Q6H 04/10/17 Ondansetron HCl [Zofran] 4 mg PO TID PRN 04/10/17 Allergies: NKDA ROS CONSTITUTIONAL: Absent: diaphoresis, generalized weakness, malaise, loss of appetite, weight change CARDIOVASCULAR: Absent: chest pain, syncope, palpitations, irregular heart rate , lightheadedness, peripheral edema RESPIRATORY: Absent: cough, wheezing, stridor, hemoptysis GASTROINTESTINAL:Absent: see hpi GENITOURINARY: Absent: dysuria, frequency, urgency, hesitancy, hematuria, flank pain, genital pain MUSCULOSKELETAL: Absent: myalgia, arthralgia, joint swelling, back pain, neck pain SKIN: Absent: rash, itching, pallor HEMATOLOGIC/IMMUNOLOGIC: Absent: easy bleeding, easy bruising, lymphadenopathy NEUROLOGIC: Absent: headache, focal weakness, paresthesias, dizziness, unsteady gait, seizure, mental status changes, PSYCHIATRIC: Absent: anxiety, depression, suicidal or homicidal ideation, hallucinations. PE: GENERAL: Awake, alert, and fully oriented, in no acute distress. HEAD: NC. AT EYES: PERRL, sclera anicteric, conjunctiva clear. LUNGS: CTA bilat anteriorly HEART: RRR ABDOMEN: Soft. Mild RUQ TTP (Pineda's -). No organomeagly appreciated. + bowel sounds MUSCULOSKELETAL: No CVAT UE: 2+ pulses, warm, well-perfused. No cyanosis. Cap refill <2 seconds. No peripheral edema. LE: 2+ pulses, warm, well-perfused. No calf tenderness. No peripheral edema. PSYCH: Cooperative. Good eye contact. Appropriate mood and affect. SKIN: Warm, dry, normal turgor, no rashes or lesions noted. Vital Signs Temperature 97.9 F 04/13/17 08:00 Pulse Rate 92 H 04/13/17 08:00 Respiratory Rate 18 04/13/17 08:00 Blood Pressure 143/87 04/13/17 08:00 O2 Sat by Pulse Oximetry (%) 97 04/11/17 21:00 Lab Results WBC 6.5 K/mm3 (4.0-10.0) 04/13/17 07:15 RBC 3.85 M/mm3 (3.60-5.2) 04/13/17 07:15 Hgb 10.9 GM/dL (10.7-15.3) D 04/13/17 07:15 Hct 33.4 % (32.4-45.2) 04/13/17 07:15 MCV 86.7 fl (80-96) 04/13/17 07:15 MCHC 32.7 g/dl (32.0-36.0) 04/13/17 07:15 RDW 20.2 % (11.6-15.6) H 04/13/17 07:15 Plt Count 429 K/MM3 (134-434) D 04/13/17 07:15 Sodium 138 mmol/L (136-145) 04/13/17 07:15 Potassium 3.5 mmol/L (3.5-5.1) 04/13/17 07:15 Chloride 102 mmol/L (98-107) 04/13/17 07:15 Carbon Dioxide 24 mmol/L (21-32) 04/13/17 07:15 Anion Gap 12 (8-16) 04/13/17 07:15 BUN 5 mg/dL (7-18) L D 04/10/17 07:25 Creatinine 0.5 mg/dL (0.55-1.02) L 04/13/17 07:15 Random Glucose 80 mg/dL (74-106) 04/13/17 07:15 Calcium 10.5 mg/dL (8.5-10.1) H 04/13/17 07:15 INR 1.12 (0.82-1.09) 04/09/17 11:40 Problem List - Problems (1) Acute gallstone pancreatitis Assessment/Plan: Admitted with confirmed GS Pancreatitis. Literature recommends that patient have her GB removed surgically on this hospital visit. f/u amylase and lipase ordered --> want to make sure that pancreatitis is resolved prior to procedure. Cont oob and ambulate Medical optimization / clearance On schedule for lap ruba, possible open tomorrow at 2pm. Type and screen ordered Pain management prn Tylenol for fever > 100.3F Above discussed with Dr. Henson and agrees Code(s): K85.10 - BILIARY ACUTE PANCREATITIS WITHOUT NECROSIS OR INFECTION Visit type - Case Type Case Type: ED Admission - New patient This patient is new to me today: Yes Date on this admission: 04/13/17
[2017-04-13 09:47] LABS: AMYLASE 49 U/L (25-115)
[2017-04-13] MEDS ORDERED: PT OWN MED DRAWER 7, Y5N ONE (09:56)
[2017-04-13] MEDS: PANTOPRAZOLE SODIUM 40 MG in SODIUM CHLORIDE 100 ML IVPB SCH (10:02)
[2017-04-13] MEDS: ENOXAPARIN NA (PORCINE) 40 MG/0.4 ML DISP.SYRIN SQ SCH ×2 (10:02→10:08)
--- NOTE | 2017-04-13 14:16 | MSN ---
Progress Note (SOAP) - Subjective Chief Complaint: Persistent epigastric pain History of Present Illness: Patient is a 46-year-old female with past medical history of cholelithiasis, esophagitis, gastritis, constipation, and migranine, presented with persistent epigastric pain, and now is being evaluated for acute gallstone pancreatitis. There was no acute event overnight. Vital signs were stable. Patient states that her epigastric pain is much better, now 4-5/10. Patient is tolerating her full liquid diet well and denies any nausea/vomiting. Pateint had a BM yesterday. Patient still complains of persistent migraine headache, now 04/13, with minimal improvement after taking benedryl. Patient denies any shortness of breath, chest pain, or weakness/numbness. - Current Medications Current Medications: Active Medications Acetaminophen/Butalbital/Caffeine (Fioricet -) 1 tablet PO Q6H PRN PRN Reason: FEVER OR PAIN Last Admin: 04/12/17 16:17 Dose: 1 tablet Diphenhydramine HCl (Benadryl Injection -) 50 mg IVPUSH Q6H RC Last Admin: 04/13/17 11:24 Dose: 50 mg Docusate Sodium (Colace -) 100 mg PO BID PRN PRN Reason: CONSTIPATION Last Admin: 04/12/17 16:19 Dose: 100 mg Enoxaparin Sodium (Lovenox -) 40 mg SQ DAILY [facility] Last Admin: 04/13/17 10:08 Dose: Not Given Pantoprazole Sodium 40 mg/ (Sodium Chloride) 100 mls @ 200 mls/hr IVPB DAILY [facility] Last Admin: 04/13/17 10:02 Dose: 200 mls/hr Lactated Ringer's (Lactated Ringers Solution) 1,000 mls @ 75 mls/hr IV ASDIR [facility] Last Admin: 04/13/17 05:12 Dose: 75 mls/hr Metoclopramide HCl (Reglan Injection -) 10 mg IVPB Q6H PRN PRN Reason: NAUSEA AND/OR VOMITING Oxycodone HCl (Roxicodone -) 5 mg PO Q6H PRN PRN Reason: PAIN Last Admin: 04/12/17 12:21 Dose: 5 mg - Objective Vital Signs: Vital Signs Temperature 98.1 F 04/13/17 14:00 Pulse Rate 104 H 04/13/17 14:00 Respiratory Rate 20 04/13/17 14:00 Blood Pressure 126/79 04/13/17 14:00 O2 Sat by Pulse Oximetry (%) 99 04/13/17 09:00 Constitutional: Yes: Well Nourished, No Distress, Calm Neck: Yes: Supple. No: Tenderness, Thyromegaly Cardiovascular: Yes: Regular Rate and Rhythm, Murmur (Grade 3 early systolic ejection murmur at [facility] radiating to right carotid; Grade 2 early systolic ejection murmur at [facility]), S1, S2. No: Gallop, Rub Respiratory: Yes: CTA Bilaterally Gastrointestinal: Yes: Normal Bowel Sounds, Soft, Tenderness (RUQ tenderness), Tenderness, Epigastrium, Other (negative Pineda's sign). No: Distention, Tenderness, Rebound Musculoskeletal: No: Back Pain, Muscle Pain Extremities: No: Calf Tenderness Peripheral Pulses: Left Doralis Pedis: 2+, Right Dorsalis Pedis: 2+ Edema: No Integumentary: No: Erythema Neurological: Yes: Alert, Oriented, Cran Nerves II-XII Intact Labs Lab Results: Laboratory Results - last 24 hr 04/13/17 04/13/17 04/13/17 07:15 07:15 07:15 WBC 6.5 RBC 3.85 Hgb 10.9 D Hct 33.4 MCV 86.7 MCH 28.4 MCHC 32.7 RDW 20.2 H Plt Count 429 D MPV 7.1 L Neutrophils % 62.4 Lymphocytes % 26.5 Monocytes % 8.9 Eosinophils % 1.5 Basophils % 0.7 Sodium 138 Potassium 3.5 Chloride 102 Carbon Dioxide 24 Anion Gap 12 BUN 2 L* D Creatinine 0.5 L Creat Clearance w eGFR > 60 Random Glucose 80 Calcium 10.5 H Total Bilirubin 0.5 GGT 172 H AST 16 ALT 18 Alkaline Phosphatase 166 H Total Protein 7.3 Albumin 3.5 Total Amylase 49 Cancelled Lipase 169 Cancelled Blood Type Antibody Screen 04/13/17 11:35 WBC RBC Hgb Hct MCV MCH MCHC RDW Plt Count MPV Neutrophils % Lymphocytes % Monocytes % Eosinophils % Basophils % Sodium Potassium Chloride Carbon Dioxide Anion Gap BUN Creatinine Creat Clearance w eGFR Random Glucose Calcium Total Bilirubin GGT AST ALT Alkaline Phosphatase Total Protein Albumin Total Amylase Lipase Blood Type A POSITIVE Antibody Screen Negative Imaging - Results Other: Report Reviewed (2D ECHO shows normal LVEF, trace MR/TR) Problem List - Problems (1) Acute gallstone pancreatitis Code(s): K85.10 - BILIARY ACUTE PANCREATITIS WITHOUT NECROSIS OR INFECTION (2) Migraine Code(s): G43.909 - MIGRAINE, UNSP, NOT INTRACTABLE, WITHOUT STATUS MIGRAINOSUS Qualifiers: Migraine type: chronic without aura (3) Hypercalcemia Code(s): E83.52 - HYPERCALCEMIA (4) Constipation Code(s): K59.00 - CONSTIPATION, UNSPECIFIED Qualifiers: Constipation type: unspecified constipation type Qualified Code(s): K59.00 - Constipation, unspecified; K59.00 - Constipation, unspecified (5) Gastritis Code(s): K29.70 - GASTRITIS, UNSPECIFIED, WITHOUT BLEEDING Qualifiers: Gastritis type: unspecified gastritis Assessment/Plan Patient is a 46-year-old female with PMHx of cholelithiasis, esophagitis, gastritis, constipation, and migraine, being evaluated for acute gallstone pancreatitis. 1. Acute gallstone pancreatitis - improved, tolerating full-liquid diet, will advance to regular soft low-fat diet - Risk stratification indicates that patient is at low-risk in an intermediate risk procedure - Surgery consulted: will undergo laparoscopic cholecystectomy, possible open at 2pm tomorrow - Will recheck amylase and lipase prior surgery - NPO at midnight - Pain control with oxycodone 2. Migraine headache without aura - Pain control with fioriocet and benedryl PRN - Continue to monitor 3. Hypercalcemia - mildly elevated at 10.5, with decreased phos at 2.3 - check PTH to rule out hyperparathyroidism 4. Constipation - improved with colace 5. Gastritis - Continue Protonix - Lifestyle adjustment 6. DVT prophylaxis - Lovenox 40mg SQ once daily - Hold it before surgery tomorrow
--- NOTE | 2017-04-13 15:51 | PN ---
Physical Exam: SUBJECTIVE: Patient seen and examined. No acute events overnight. Pt reports tolerating full liquid diet well without nausea or emesis. She reported some constipation yesterday which has resolved today. She states that her headache is still 9/10, but her abdominal pain has improved to 4/10. OBJECTIVE: Vital Signs Period Temp Pulse Resp BP Sys/Briggs Pulse Ox Last 24 Hr 97.9 F-98.1 F 89-104 18-20 126-151/79-87 99 GENERAL: The patient is awake, alert, and fully oriented, in no acute distress. HEAD: Normal with no signs of trauma. EYES: PERRL, extraocular movements intact, sclera anicteric, conjunctiva clear. No ptosis. ENT: Ears normal, nares patent, oropharynx clear without exudates, moist mucous membranes. NECK: Trachea midline, full range of motion, supple. LUNGS: Breath sounds equal, clear to auscultation bilaterally, no wheezes, no crackles, no accessory muscle use. HEART: Regular rate and rhythm, S1, S2 with diastolic murmur heard best in right upper sternal border ABDOMEN: soft, ND, moderately tender in RUQ and epigastric region, no peritoneal signs EXTREMITIES: 2+ pulses, warm, well-perfused, no edema. NEUROLOGICAL: Cranial nerves II through XII grossly intact. Normal speech, gait not observed. PSYCH: Normal mood, normal affect. SKIN: Warm, dry, normal turgor, no rashes or lesions noted Laboratory Results - last 24 hr 04/13/17 04/13/17 04/13/17 07:15 07:15 07:15 WBC 6.5 RBC 3.85 Hgb 10.9 D Hct 33.4 MCV 86.7 MCH 28.4 MCHC 32.7 RDW 20.2 H Plt Count 429 D MPV 7.1 L Neutrophils % 62.4 Lymphocytes % 26.5 Monocytes % 8.9 Eosinophils % 1.5 Basophils % 0.7 Sodium 138 Potassium 3.5 Chloride 102 Carbon Dioxide 24 Anion Gap 12 BUN 2 L* D Creatinine 0.5 L Creat Clearance w eGFR > 60 Random Glucose 80 Calcium 10.5 H Total Bilirubin 0.5 GGT 172 H AST 16 ALT 18 Alkaline Phosphatase 166 H Total Protein 7.3 Albumin 3.5 Total Amylase 49 Cancelled Lipase 169 Cancelled Blood Type Antibody Screen 04/13/17 11:35 WBC RBC Hgb Hct MCV MCH MCHC RDW Plt Count MPV Neutrophils % Lymphocytes % Monocytes % Eosinophils % Basophils % Sodium Potassium Chloride Carbon Dioxide Anion Gap BUN Creatinine Creat Clearance w eGFR Random Glucose Calcium Total Bilirubin GGT AST ALT Alkaline Phosphatase Total Protein Albumin Total Amylase Lipase Blood Type A POSITIVE Antibody Screen Negative Active Medications Generic Name Dose Route Start Last Admin Trade Name Freq PRN Reason Stop Dose Admin Acetaminophen/Butalbital/Caffeine 1 tablet 04/09/17 18:05 04/12/17 16:17 Fioricet - PO 1 tablet Q6H PRN Administration FEVER OR PAIN Diphenhydramine HCl 50 mg 04/13/17 14:44 Benadryl Injection - IVPUSH Q6H PRN HEADACHE Docusate Sodium 100 mg 04/12/17 11:30 04/12/17 16:19 Colace - PO 100 mg BID PRN Administration CONSTIPATION Enoxaparin Sodium 40 mg 04/09/17 18:15 04/13/17 10:08 Lovenox - SQ Not Given DAILY RC Pantoprazole Sodium 40 mg/ 100 mls @ 200 mls/hr 04/10/17 13:15 04/13/17 10:02 Sodium Chloride IVPB 200 mls/hr DAILY RC Administration Lactated Ringer's 1,000 mls @ 75 mls/hr 04/12/17 10:21 04/13/17 05:12 Lactated Ringers Solution IV 75 mls/hr ASDIR RC Administration Metoclopramide HCl 10 mg 04/09/17 18:11 Reglan Injection - IVPB Q6H PRN NAUSEA AND/OR VOMITING Oxycodone HCl 5 mg 04/12/17 10:23 04/12/17 12:21 Roxicodone - PO 5 mg Q6H PRN Administration PAIN ASSESSMENT/PLAN: 46F w/ hx of cholelithiasis, migraines, esophagitis, and recent admission for a rule/out cholecystitis who presented with abdominal pain, was found to have acute gallstone pancreatitis. Diet is being advanced as tolerated and pain is being controlled. Pt to go to surgery sal for lap ruba. #Acute gallstone pancreatitis- improving -advance diet as tolerated, changed to soft low fat diet today -continue LR 75 -continue pain control with percocet 5 -GI and surgery on board, appreciated recs -pt to go for lap ruba sal at 2pm. NPO at midnight and lovenox held for sal #migraines -continue fioricet -IV benadryl changed to PRN #Elevated ALP -likely due to gallstone pancreatitis -still elevated today at 166 #Hypercalcemia -calcium of 10.5 with albumin of 3.5 -phosphate of 2.3 -possibly 2/2 hyperparathyroidism -f/u PTH #Tachycardia -likely 2/2 headache and abdominal pain -monitor #constipation -continue colace -monitor #Murmur -echo: trace MR and TR -f/u cardiology as outpt #FEN/PPx -LR at 75 -electrolytes wnl -soft, low fat diet -pantoprazole 40 -lovenox 40 -Brayden Johnson MD PGY1 Visit type - Emergency Visit Emergency Visit: Yes ED Registration Date: 04/09/17 Care time: The patient presented to the Emergency Department on the above date and was hospitalized for further evaluation of their emergent condition. - New Patient This patient is new to me today: No - Critical Care Critical Care patient: No
[2017-04-13] MEDS: ACETAMINOPHEN/CAFFEINE/BUTALBITAL 1 TAB PO PRN (16:55)
--- NOTE | 2017-04-13 19:06 | PN ---
Teaching Attending Note Name of Resident: Brayden Johnson ATTENDING PHYSICIAN STATEMENT I saw and evaluated the patient. I reviewed the resident's note and discussed the case with the resident. I agree with the resident's findings and plan as documented. SUBJECTIVE: no fever or chills .Abd pain has improved CHERRY has improved OBJECTIVE: NAD Cv: RRR, 3/6 SM at [facility], 3/6 SM at [facility] and [facility] . No JVD . Lungs: CTAB Ext : no edema Abd : soft, ND, TTP in epigastric area, and , LUQ. Neg Pineda's , NL BS . No rebound tenderness Assessment/Plan: 46 y/o lady with h/o cholelthiasis , and migraines with recent admission during which acute cholecystitis was r/o , who presented with abd pain and was found to have acute gall stone pancreatitis 1- Acute gall stone pancreatitis: - avance diet to low fat diet - Cont IVF again - Cont oxycodone - Cont PPI - for CCY tomorrow - pre-OP risk stratification: the procedure is an intermediate risk procedure. the patient has no signs of ACS , arrhythmias, or CHF. echo with no significant valve abnormalities. the pt functional capacity is equivalent of > 10 METS. This patient is a low risk for this intermediate risk procedure. No further cardiac W/U needed before sx 2- Migraines: cont PRN fioricet and change benadryl to PRN 3- DVT px : Lovenox
[2017-04-14 07:27] LABS: BASOPHIL 0.9 % (0-2.0); EOSINOPHIL 2.9 % (0-4.5); MCHC 32.3 g/dl (32.0-36.0); MEAN CELL VOLUME 86.6 fl (80-96); MEAN PLT VOLUME 7.4 fl (7.5-11.1); PLATELET COUNT 416 K/MM3 (134-434); RDW 19.9 % (11.6-15.6); WHITE BLOOD COUNT 5.2 K/mm3 (4.0-10.0)
[2017-04-14 07:31] LABS: INR 1.19 (0.82-1.09); PROTHROMBIN TIME (PATIENT) 13.1 SEC (9.98-11.88)
[2017-04-14 07:32] LABS: ACTIVATED PTT 31.4 SECONDS (26.9-34.4)
[2017-04-14 08:37] LABS: ALBUMIN 3.1 g/dl (3.4-5.0); ALK PHOS 144 U/L (45-117); ANION GAP 10 (8-16); BILIRUBIN,TOTAL 0.3 mg/dL (0.2-1.0); CALCIUM 10.1 mg/dL (8.5-10.1); CO2 28 mmol/L (21-32); CREATININE 0.4 mg/dL (0.55-1.02); GLUCOSE,RANDOM 92 mg/dL (74-106); MAGNESIUM 1.7 mg/dL (1.8-2.4); PHOSPHOROUS 2.4 mg/dL (2.5-4.9); SGOT/AST 14 U/L (15-37); SGPT/ALT 18 U/L (12-78); TOT PROT 6.6 g/dl (6.4-8.2)
[2017-04-14 10:16] LABS: AMYLASE 48 U/L (25-115)
[2017-04-14] MEDS ORDERED: PT OWN MED DRAWER 7, Y5N ONE (12:42)
[2017-04-14] MEDS: PANTOPRAZOLE SODIUM 40 MG in SODIUM CHLORIDE 100 ML IVPB SCH (12:43)
--- NOTE | 2017-04-14 12:59 | PN ---
Teaching Attending Note Name of Resident: Brayden Johnson ATTENDING PHYSICIAN STATEMENT I saw and evaluated the patient. I reviewed the resident's note and discussed the case with the resident. I agree with the resident's findings and plan as documented. SUBJECTIVE: Patient is comfortable going for surgery for cholecystectomy today by . No fever or chills, no shortness of breath. OBJECTIVE: Vital Signs Temperature 98.2 F 04/14/17 06:09 Pulse Rate 89 04/14/17 06:09 Respiratory Rate 20 04/14/17 06:09 Blood Pressure 125/82 04/14/17 06:09 O2 Sat by Pulse Oximetry (%) 99 04/13/17 22:00 CBCD WBC 5.2 K/mm3 (4.0-10.0) 04/14/17 06:20 RBC 3.76 M/mm3 (3.60-5.2) 04/14/17 06:20 Hgb 10.5 GM/dL (10.7-15.3) L 04/14/17 06:20 Hct 32.6 % (32.4-45.2) 04/14/17 06:20 MCV 86.6 fl (80-96) 04/14/17 06:20 MCHC 32.3 g/dl (32.0-36.0) 04/14/17 06:20 RDW 19.9 % (11.6-15.6) H 04/14/17 06:20 Plt Count 416 K/MM3 (134-434) 04/14/17 06:20 MPV 7.4 fl (7.5-11.1) L 04/14/17 06:20 CMP Sodium 142 mmol/L (136-145) 04/14/17 06:20 Potassium 3.9 mmol/L (3.5-5.1) 04/14/17 06:20 Chloride 104 mmol/L (98-107) 04/14/17 06:20 Carbon Dioxide 28 mmol/L (21-32) 04/14/17 06:20 Anion Gap 10 (8-16) 04/14/17 06:20 BUN 3 mg/dL (7-18) L D 04/14/17 06:20 Creatinine 0.4 mg/dL (0.55-1.02) L 04/14/17 06:20 Creat Clearance w eGFR > 60 (>60) 04/14/17 06:20 Random Glucose 92 mg/dL (74-106) 04/14/17 06:20 Calcium 10.1 mg/dL (8.5-10.1) 04/14/17 06:20 Total Bilirubin 0.3 mg/dL (0.2-1.0) D 04/14/17 06:20 AST 14 U/L (15-37) L 04/14/17 06:20 ALT 18 U/L (12-78) 04/14/17 06:20 Alkaline Phosphatase 144 U/L (45-117) H 04/14/17 06:20 Total Protein 6.6 g/dl (6.4-8.2) 04/14/17 06:20 Albumin 3.1 g/dl (3.4-5.0) L 04/14/17 06:20 Current Medications Generic Name Dose Route Start Last Admin Trade Name Freq PRN Reason Stop Dose Admin Acetaminophen/Butalbital/Caffeine 1 tablet 04/09/17 18:05 04/13/17 16:55 Fioricet - PO 1 tablet Q6H PRN Administration FEVER OR PAIN Diphenhydramine HCl 50 mg 04/13/17 14:44 Benadryl Injection - IVPUSH Q6H PRN HEADACHE Docusate Sodium 100 mg 04/12/17 11:30 04/12/17 16:19 Colace - PO 100 mg BID PRN Administration CONSTIPATION Enoxaparin Sodium 40 mg 04/09/17 18:15 04/13/17 10:08 Lovenox - SQ Not Given DAILY RC Pantoprazole Sodium 40 mg/ 100 mls @ 200 mls/hr 04/10/17 13:15 04/14/17 12:43 Sodium Chloride IVPB 200 mls/hr DAILY RC Administration Lactated Ringer's 1,000 mls @ 75 mls/hr 04/12/17 10:21 04/13/17 19:53 Lactated Ringers Solution IV 75 mls/hr ASDIR RC Administration Metoclopramide HCl 10 mg 04/09/17 18:11 Reglan Injection - IVPB Q6H PRN NAUSEA AND/OR VOMITING Oxycodone HCl 5 mg 04/12/17 10:23 04/12/17 12:21 Roxicodone - PO 5 mg Q6H PRN Administration PAIN Home Medications Medication Instructions Recorded Pantoprazole Sodium [Protonix -] 40 mg PO DAILY #30 cap 04/03/17 Acetaminophen/Caffeine/Butalb 1 tab PO Q6H 04/10/17 [Fioricet -] Ondansetron HCl [Zofran] 4 mg PO TID PRN 04/10/17 PE: as per resident's note ASSESSMENT AND PLAN: 46 y/o lady with h/o cholelthiasis , and migraines with recent admission during which acute cholecystitis was r/o , who presented with abd pain and was found to have acute gall stone pancreatitis. #Acute gall stone pancreatitis: Patient is going for lap-chol. today # Migraines: cont PRN fioricet DVT px : scds, Hold lovenox for surgery
[2017-04-14] MEDS ORDERED: BUPIVACAINE HCL/PF 0.5% (5MG/ML) 10 ML VIAL ONE (13:46)
[2017-04-14] MEDS ORDERED: DEXAMETHASONE SOD PHOSPHATE 4 MG/1 ML VIAL ONE (13:58)
[2017-04-14] MEDS ORDERED: MIDAZOLAM HCL 2 MG/2 ML SINGLE DOSE VIAL ONE (13:58)
--- NOTE | 2017-04-14 14:06 | OP ---
Operative Note - Note: Operative Date: 04/14/17 Pre-Operative Diagnosis: gall stone pancreatitis Operation: laparoscopic cholecystectomy Post-Operative Diagnosis: Same as Pre-op Surgeon: Kalia Henson Anesthesiologist/CABLE LACER: Brayden Peña Anesthesia: General Estimated Blood Loss (mls): 10 Operative Report Dictated: Yes
[2017-04-14] MEDS ORDERED: ROCURONIUM BROMIDE 50 MG/5 ML VIAL ONE (14:08)
[2017-04-14] MEDS ORDERED: PROPOFOL 20 ML ONE ×2 (14:08→14:29)
[2017-04-14] MEDS ORDERED: SUCCINYLCHOLINE CHLORIDE 200 MG/10 ML VIAL ONE (14:08)
[2017-04-14] MEDS ORDERED: HYDROmorphone HCL CARPU-JECT 1 MG/1 ML DISP.SYRIN IVPUSH PRN (14:09)
[2017-04-14] MEDS ORDERED: ceFAZolin SODIUM 1 GM VIAL IVPB ONE (14:23)
[2017-04-14] MEDS ORDERED: ceFAZolin SODIUM 1 GM VIAL ONE (14:24)
[2017-04-14] MEDS ORDERED: HYDROmorphone HCL/PF 1 MG/ML VIAL (FOR PYXIS CHARGING ONLY) ONE (14:26)
[2017-04-14] MEDS ORDERED: BUPIVACAINE HCL/PF 0.5% (5MG/ML) 10 ML VIAL IJ ONE ×2 (14:26→14:52)
[2017-04-14] MEDS ORDERED: PHENYLEPHRINE HCL 10 MG/1 ML SINGLE DOSE VIAL ONE (14:32)
[2017-04-14] MEDS ORDERED: GLYCOPYRROLATE 0.2 MG/1 ML VIAL ONE (14:49)
[2017-04-14] MEDS ORDERED: NEOSTIGMINE METHYLSULFATE 0.5 MG/ML - 10 ML MDV ONE (14:49)
[2017-04-14] MEDS ORDERED: KETOROLAC TROMETHAMINE 30 MG/1 ML VIAL ONE (14:50)
--- NOTE | 2017-04-14 15:10 | SURG ---
Surgery Beam Doffer Note Beam Doffer: Brayden Peña PA-C Date of Service: 04/14/17 Diagnosis: Gallstone pancreatitis Procedure: Laparoscopic cholecystectomy I was present for the entirety of the operative procedure. For further detail, please refer to operative report. Visit type - Case Type Case Type: ED Admission - Emergency Emergency Visit: Yes ED Registration Date: 04/09/17 Care time: The patient presented to the Emergency Department on the above date and was hospitalized for further evaluation of their emergent condition. - New patient This patient is new to me today: Yes Date on this admission: 04/14/17
[2017-04-14] MEDS ORDERED: ACETAMINOPHEN 1000 MG/100 ML VIAL (NON FORMULARY) IVPB ONE (15:13)
[2017-04-14] MEDS ORDERED: LACTATED RINGERS SOLUTION 1,000 ML IV SCH ×2 (15:15→15:41)
[2017-04-14] MEDS ORDERED: HYDROmorphone HCL CARPU-JECT 1 MG/1 ML DISP.SYRIN IVPUSH ONE (15:15)
[2017-04-14] MEDS ORDERED: PROMETHAZINE HCL 25 MG/1 ML VIAL IVPUSH PRN (15:15)
[2017-04-14] MEDS ORDERED: HYDROmorphone HCL CARPU-JECT 2 MG/1 ML DISP.SYRIN ONE (15:18)
[2017-04-14] MEDS: HYDROmorphone HCL CARPU-JECT 1 MG/1 ML DISP.SYRIN IVPUSH PRN ×5 (15:20→21:53)
[2017-04-14] MEDS ORDERED: ONDANSETRON 4 MG TABLET PO PRN (15:41)
[2017-04-14] MEDS ORDERED: METOCLOPRAMIDE HCL INJECTION 10 MG/2 ML VIAL IVPB PRN (15:41)
[2017-04-14] MEDS ORDERED: ACETAMINOPHEN/CAFFEINE/BUTALBITAL 1 TAB PO PRN (15:41)
[2017-04-14] MEDS ORDERED: DOCUSATE SODIUM 100 MG CAPSULE (FP) PO PRN (15:41)
[2017-04-14] MEDS ORDERED: ACETAMINOPHEN INJECTION 100 ML IVPB ONE (15:46)
--- NOTE | 2017-04-14 16:27 | OP ---
DATE OF OPERATION: 04/14/2017 PREOPERATIVE DIAGNOSIS: Gallstone pancreatitis. POSTOPERATIVE DIAGNOSIS: Gallstone pancreatitis. PROCEDURE: Laparoscopic cholecystectomy. SURGEON: Kalia Henson MD HISTORIC SITES REGISTRAR: DIYA Sanders COMPLICATIONS: None. SPECIMENS: Gallbladder. DISPOSITION: The patient tolerated the procedure well. INDICATIONS: This is a 46-year-old who had presented to the hospital twice with epigastric and right upper quadrant pain. Evidence of gallstones on ultrasound. Elevated lipase consistent with gallstone pancreatitis. The patient underwent an MRCP that showed no evidence of presently current stones in the common bile duct; however, surgical evaluation was considered and recommended cholecystectomy. The risks and benefits discussed with the patient and informed consent was obtained. DESCRIPTION OF PROCEDURE: The patient was taken to the operating room and placed in the supine position. After the induction of general anesthesia, she was prepped and draped in the usual sterile fashion. A standard time-out was observed and the operation was begun. Through a 1.5-cm incision transversely in the periumbilical region the dissection was performed with cautery and a standard Louis approach was used to enter the peritoneal cavity without complications. A 12-mm port was placed in this incision and insufflation pressure of 15 mmHg was established. Next, laparoscopic vision three 5-mm ports were introduced; one in the epigastric and 2 in the right upper quadrant. The patient was then positioned in reverse Trendelenburg position. The gallbladder was identified. There were some adhesions to the gallbladder, which were taken down bluntly with the [place] dissector. The gallbladder was retracted superiorly and laterally. The cystic duct and artery were then dissected by reflecting the overlying peritoneum over the infundibular region of the gallbladder. The cystic duct and artery were skeletonized carefully using the [place] dissector bluntly. Once I had a clear view of safety had been established with identification of the cystic duct and the common bile duct junction and the gallbladder duct both distal and proximal to the cystic duct and cystic artery identified within the triangle of Calot, the cystic artery and duct were then doubly ligated with Endo-clips and divided with Endoshears and then the gallbladder was dissected off the liver bed with the use of hook dissector. Care was taken to avoid injury to the liver or any other adjacent structures. The gallbladder was removed intact and placed into an EndoCatch bag. The right upper quadrant was irrigated and suctioned and final check for hemostasis was performed. Cautery was used to control hemostasis. Then the gallbladder was brought out through the umbilical incision. The ports were removed under direct vision. The fascia at the umbilical port was closed with 0 Vicryl sutures. The skin was closed with 4-0 Monocryl at all port sites. Dermabond was applied. The patient was returned to the recovery room awake, alert, and in stable condition. She tolerated the procedure well. John [id number]
--- NOTE | 2017-04-14 16:27 | PN ---
Physical Exam: SUBJECTIVE: Patient seen and examined. No acute events overnight. Pt tolerated diet well without n/v/d. Abdominal pain and headache has improved. OBJECTIVE: Vital Signs Period Temp Pulse Resp BP Sys/Briggs Pulse Ox Last 24 Hr 98.2 F-98.5 F 89-104 16-20 118-146/55-88 96-100 GENERAL: The patient is awake, alert, and fully oriented, in no acute distress. HEAD: Normal with no signs of trauma. EYES: PERRL, extraocular movements intact, sclera anicteric, conjunctiva clear. No ptosis. ENT: Ears normal, nares patent, oropharynx clear without exudates, moist mucous membranes. NECK: Trachea midline, full range of motion, supple. LUNGS: Breath sounds equal, clear to auscultation bilaterally, no wheezes, no crackles, no accessory muscle use. HEART: Regular rate and rhythm, S1, S2 with diastolic murmur heard best in right upper sternal border ABDOMEN: Soft, minimally tender in RUQ, nondistended, normoactive bowel sounds, no guarding, no rebound, no hepatosplenomegaly, no masses. EXTREMITIES: 2+ pulses, warm, well-perfused, no edema. NEUROLOGICAL: Cranial nerves II through XII grossly intact. Normal speech, gait not observed. PSYCH: Normal mood, normal affect. SKIN: Warm, dry, normal turgor, no rashes or lesions noted Laboratory Results - last 24 hr 04/14/17 04/14/17 04/14/17 06:20 06:20 06:20 WBC 5.2 RBC 3.76 Hgb 10.5 L Hct 32.6 MCV 86.6 MCH 28.0 MCHC 32.3 RDW 19.9 H Plt Count 416 MPV 7.4 L Neutrophils % 47.0 D Lymphocytes % 38.4 D Monocytes % 10.8 H Eosinophils % 2.9 D Basophils % 0.9 PT with INR 13.10 H INR 1.19 H PTT (Actin FS) 31.4 Sodium 142 Potassium 3.9 Chloride 104 Carbon Dioxide 28 Anion Gap 10 BUN 3 L D Creatinine 0.4 L Creat Clearance w eGFR > 60 Random Glucose 92 Calcium 10.1 Phosphorus 2.4 L Magnesium 1.7 L Total Bilirubin 0.3 D AST 14 L ALT 18 Alkaline Phosphatase 144 H Total Protein 6.6 Albumin 3.1 L Total Amylase 48 Lipase 254 Serum , Qual 04/14/17 04/14/17 04/14/17 09:15 09:20 09:40 WBC RBC Hgb Hct MCV MCH MCHC RDW Plt Count MPV Neutrophils % Lymphocytes % Monocytes % Eosinophils % Basophils % PT with INR INR PTT (Actin FS) Sodium Potassium Chloride Carbon Dioxide Anion Gap BUN Creatinine Creat Clearance w eGFR Random Glucose Calcium Phosphorus Magnesium Total Bilirubin AST ALT Alkaline Phosphatase Total Protein Albumin Total Amylase Cancelled Lipase Cancelled Serum , Qual Negative Active Medications Generic Name Dose Route Start Last Admin Trade Name Freq PRN Reason Stop Dose Admin Acetaminophen/Butalbital/Caffeine 1 tablet 04/14/17 15:41 Fioricet - PO Q6H PRN FEVER OR PAIN Diphenhydramine HCl 50 mg 04/14/17 15:41 Benadryl Injection - IVPUSH Q6H PRN HEADACHE Docusate Sodium 100 mg 04/14/17 15:41 Colace - PO BID PRN CONSTIPATION Enoxaparin Sodium 40 mg 04/15/17 10:00 Lovenox - SQ DAILY RC Hydromorphone HCl 1 mg 04/14/17 15:41 Dilaudid Injection - IVPUSH Q6H PRN PAIN Lactated Ringer's 1,000 mls @ 75 mls/hr 04/14/17 15:15 Lactated Ringers Solution IV ASDIR RC Lactated Ringer's 1,000 mls @ 75 mls/hr 04/14/17 15:41 Lactated Ringers Solution IV ASDIR RC Pantoprazole Sodium 40 mg/ 100 mls @ 200 mls/hr 04/15/17 10:00 Sodium Chloride IVPB DAILY RC Metoclopramide HCl 10 mg 04/14/17 15:41 Reglan Injection - IVPB Q6H PRN NAUSEA AND/OR VOMITING Ondansetron HCl 4 mg 04/14/17 15:41 Zofran - PO TID PRN NAUSEA Oxycodone HCl 5 mg 04/14/17 15:41 Roxicodone - PO Q6H PRN PAIN Pantoprazole Sodium 40 mg 04/15/17 10:00 Protonix - PO DAILY RC Promethazine HCl 12.5 mg 04/14/17 15:15 Phenergan Injection - IVPUSH 04/14/17 21:16 Q6H PRN NAUSEA-FOR RESCUE AFTER 15 MIN ASSESSMENT/PLAN: 46F w/ hx of cholelithiasis, migraines, esophagitis, and recent admission for a rule/out cholecystitis who presented with abdominal pain, was found to have acute gallstone pancreatitis. Diet is being advanced as tolerated and pain is being controlled. Pt to go to surgery today for lap ruba. #Acute gallstone pancreatitis- improving -tolerating soft low fat diet well -continue LR 75 -continue pain control with percocet 5 -GI and surgery on board, appreciated recs -pt to go for lap ruba today at 2pm #migraines -continue fioricet -IV benadryl PRN #Elevated ALP -likely due to gallstone pancreatitis -still elevated today at 166 #Hypercalcemia -calcium of 10.5 with albumin of 3.5 -phosphate of 2.3 -possibly 2/2 hyperparathyroidism -f/u PTH #Tachycardia -likely 2/2 headache and abdominal pain -monitor #constipation -continue colace -monitor #Murmur -echo: trace MR and TR -f/u cardiology as outpt #FEN/PPx -LR at 75 -electrolytes wnl -regular diet after surgery per surgery -pantoprazole 40 -lovenox held for surgery -Brayden Johnson MD PGY1 Visit type - Emergency Visit Emergency Visit: Yes ED Registration Date: 04/09/17 Care time: The patient presented to the Emergency Department on the above date and was hospitalized for further evaluation of their emergent condition. - New Patient This patient is new to me today: No - Critical Care Critical Care patient: No
[2017-04-14] MEDS: oxyCODONE HCL 5 MG TABLET PO PRN (18:07)
[2017-04-15] MEDS: oxyCODONE HCL 5 MG TABLET PO PRN (05:27)
[2017-04-15 08:27] LABS: BASOPHIL 0.6 % (0-2.0); EOSINOPHIL 1.1 % (0-4.5); MCHC 32.1 g/dl (32.0-36.0); MEAN CELL VOLUME 87.3 fl (80-96); MEAN PLT VOLUME 6.9 fl (7.5-11.1); NEUTROPHILS 58.6 % (42.8-82.8); PLATELET COUNT 410 K/MM3 (134-434); RDW 19.8 % (11.6-15.6); WHITE BLOOD COUNT 8.2 K/mm3 (4.0-10.0)
[2017-04-15 08:51] LABS: ANION GAP 6 (8-16); CALCIUM 10.5 mg/dL (8.5-10.1); CO2 32 mmol/L (21-32); CREATININE 0.4 mg/dL (0.55-1.02); GLUCOSE,RANDOM 89 mg/dL (74-106); MAGNESIUM 1.6 mg/dL (1.8-2.4); PHOSPHOROUS 2.5 mg/dL (2.5-4.9)
[2017-04-15] MEDS ORDERED: PT OWN MED DRAWER 7, Y5N ONE (09:06)
[2017-04-15] MEDS: HYDROmorphone HCL CARPU-JECT 1 MG/1 ML DISP.SYRIN IVPUSH PRN (09:24)
[2017-04-15] MEDS ORDERED: PANTOPRAZOLE SODIUM 40 MG in SODIUM CHLORIDE 100 ML IVPB SCH (10:00)
[2017-04-15] MEDS ORDERED: ENOXAPARIN NA (PORCINE) 40 MG/0.4 ML DISP.SYRIN SQ SCH (10:00)
[2017-04-15] MEDS ORDERED: PANTOPRAZOLE 40 MG TABLET (FP) PO SCH (10:00)
[2017-04-15 11:22] LABS: ALBUMIN 3.1 g/dl (3.4-5.0); ANION GAP 8 (8-16); BILIRUBIN,DIRECT < 0.1 mg/dL (0.0-0.2); CALCIUM 10.7 mg/dL (8.5-10.1); CO2 30 mmol/L (21-32); CREATININE 0.4 mg/dL (0.55-1.02); GLUCOSE,RANDOM 88 mg/dL (74-106); SGOT/AST 25 U/L (15-37); SGPT/ALT 22 U/L (12-78)
[2017-04-15 11:23] LABS: ALK PHOS 136 U/L (45-117); BILIRUBIN,TOTAL 0.2 mg/dL (0.2-1.0); TOT PROT 6.6 g/dl (6.4-8.2)
[2017-04-15 13:50] VITALS: BP 154/89; PULSE 96; TEMP 97.9
--- NOTE | 2017-04-15 13:55 | PN ---
Progress Note, Physician Chief Complaint: s/p lap ruba History of Present Illness: post op day one - Current Medication List Current Medications: Active Medications Acetaminophen/Butalbital/Caffeine (Fioricet -) 1 tablet PO Q6H PRN PRN Reason: FEVER OR PAIN Diphenhydramine HCl (Benadryl Injection -) 50 mg IVPUSH Q6H PRN PRN Reason: HEADACHE Last Admin: 04/14/17 18:51 Dose: 50 mg Docusate Sodium (Colace -) 100 mg PO BID PRN PRN Reason: CONSTIPATION Last Admin: 04/15/17 09:23 Dose: 100 mg Enoxaparin Sodium (Lovenox -) 40 mg SQ DAILY RC Last Admin: 04/15/17 09:23 Dose: 40 mg Hydromorphone HCl (Dilaudid Injection -) 1 mg IVPUSH Q6H PRN PRN Reason: PAIN Last Admin: 04/15/17 09:24 Dose: 1 mg Lactated Ringer's (Lactated Ringers Solution) 1,000 mls @ 75 mls/hr IV ASDIR RC Last Admin: 04/15/17 00:58 Dose: 75 mls/hr Lactated Ringer's (Lactated Ringers Solution) 1,000 mls @ 75 mls/hr IV ASDIR RC Metoclopramide HCl (Reglan Injection -) 10 mg IVPB Q6H PRN PRN Reason: NAUSEA AND/OR VOMITING Ondansetron HCl (Zofran -) 4 mg PO TID PRN PRN Reason: NAUSEA Oxycodone HCl (Roxicodone -) 5 mg PO Q6H PRN PRN Reason: PAIN Last Admin: 04/15/17 05:27 Dose: 5 mg Pantoprazole Sodium (Protonix -) 40 mg PO DAILY RC Last Admin: 04/15/17 09:23 Dose: 40 mg - Objective Vital Signs: Vital Signs Temperature 97.9 F 04/15/17 13:48 Pulse Rate 96 H 04/15/17 13:48 Respiratory Rate 20 04/15/17 13:48 Blood Pressure 154/89 04/15/17 13:48 O2 Sat by Pulse Oximetry (%) 98 04/15/17 09:00 Constitutional: Yes: Well Nourished Cardiovascular: Yes: WNL Respiratory: Yes: WNL Gastrointestinal: Yes: WNL Labs: CBC, BMP 04/15/17 08:15 04/15/17 10:00 INR, PTT INR 1.19 (0.82-1.09) H 04/14/17 06:20 Assessment/Plan No acute distress, complains of pain, no anesthetic complaints, will receive pain medication as ordered, no nausea or vomiting currently. Dept of anesthesia will sign off case at the time.
--- NOTE | 2017-04-15 14:29 | PN ---
Teaching Attending Note Name of Resident: Kasia Cristobal ATTENDING PHYSICIAN STATEMENT I saw and evaluated the patient. I reviewed the resident's note and discussed the case with the resident. I agree with the resident's findings and plan as documented. SUBJECTIVE: Patient is comfortable is going home today POD#1 OBJECTIVE: Vital Signs Temperature 97.9 F 04/15/17 13:48 Pulse Rate 96 H 04/15/17 13:48 Respiratory Rate 20 04/15/17 13:48 Blood Pressure 154/89 04/15/17 13:48 O2 Sat by Pulse Oximetry (%) 98 04/15/17 09:00 CBCD WBC 8.2 K/mm3 (4.0-10.0) D 04/15/17 08:15 RBC 3.54 M/mm3 (3.60-5.2) L 04/15/17 08:15 Hgb 9.9 GM/dL (10.7-15.3) L 04/15/17 08:15 Hct 30.9 % (32.4-45.2) L 04/15/17 08:15 MCV 87.3 fl (80-96) 04/15/17 08:15 MCHC 32.1 g/dl (32.0-36.0) 04/15/17 08:15 RDW 19.8 % (11.6-15.6) H 04/15/17 08:15 Plt Count 410 K/MM3 (134-434) 04/15/17 08:15 MPV 6.9 fl (7.5-11.1) L 04/15/17 08:15 CMP Sodium 141 mmol/L (136-145) 04/15/17 10:00 Potassium 3.5 mmol/L (3.5-5.1) 04/15/17 10:00 Chloride 103 mmol/L (98-107) 04/15/17 10:00 Carbon Dioxide 30 mmol/L (21-32) 04/15/17 10:00 Anion Gap 8 (8-16) 04/15/17 10:00 BUN 2 mg/dL (7-18) L* 04/15/17 10:00 Creatinine 0.4 mg/dL (0.55-1.02) L 04/15/17 10:00 Creat Clearance w eGFR > 60 (>60) 04/15/17 10:00 Random Glucose 88 mg/dL (74-106) 04/15/17 10:00 Calcium 10.7 mg/dL (8.5-10.1) H 04/15/17 10:00 Total Bilirubin 0.2 mg/dL (0.2-1.0) D 04/15/17 10:00 AST 25 U/L (15-37) D 04/15/17 10:00 ALT 22 U/L (12-78) D 04/15/17 10:00 Alkaline Phosphatase 136 U/L (45-117) H 04/15/17 10:00 Total Protein 6.6 g/dl (6.4-8.2) 04/15/17 10:00 Albumin 3.1 g/dl (3.4-5.0) L 04/15/17 10:00 Current Medications Generic Name Dose Route Start Last Admin Trade Name Freq PRN Reason Stop Dose Admin Acetaminophen/Butalbital/Caffeine 1 tablet 04/14/17 15:41 Fioricet - PO Q6H PRN FEVER OR PAIN Diphenhydramine HCl 50 mg 04/14/17 15:41 04/14/17 18:51 Benadryl Injection - IVPUSH 50 mg Q6H PRN Administration HEADACHE Docusate Sodium 100 mg 04/14/17 15:41 04/15/17 09:23 Colace - PO 100 mg BID PRN Administration CONSTIPATION Enoxaparin Sodium 40 mg 04/15/17 10:00 04/15/17 09:23 Lovenox - SQ 40 mg DAILY RC Administration Hydromorphone HCl 1 mg 04/14/17 15:41 04/15/17 09:24 Dilaudid Injection - IVPUSH 1 mg Q6H PRN Administration PAIN Lactated Ringer's 1,000 mls @ 75 mls/hr 04/14/17 15:15 04/15/17 00:58 Lactated Ringers Solution IV 75 mls/hr ASDIR RC Administration Lactated Ringer's 1,000 mls @ 75 mls/hr 04/14/17 15:41 Lactated Ringers Solution IV ASDIR RC Metoclopramide HCl 10 mg 04/14/17 15:41 Reglan Injection - IVPB Q6H PRN NAUSEA AND/OR VOMITING Ondansetron HCl 4 mg 04/14/17 15:41 Zofran - PO TID PRN NAUSEA Oxycodone HCl 5 mg 04/14/17 15:41 04/15/17 05:27 Roxicodone - PO 5 mg Q6H PRN Administration PAIN Pantoprazole Sodium 40 mg 04/15/17 10:00 04/15/17 09:23 Protonix - PO 40 mg DAILY RC Administration Home Medications Medication Instructions Recorded Pantoprazole Sodium [Protonix -] 40 mg PO DAILY #30 cap 04/03/17 Acetaminophen/Caffeine/Butalb 1 tab PO Q6H 04/10/17 [Fioricet -] Oxycodone HCl [Roxicodone -] 5 mg PO Q12H PRN #6 tablet MDD 2 04/15/17 PE: comfortable, NAD abdomen: soft, positive for Lap-chol rest of PE per resident's note ASSESSMENT AND PLAN: 46 y/o lady with h/o cholelthiasis , and migraines with recent admission during which acute cholecystitis was r/o , who presented with abd pain and was found to have acute gall stone pancreatitis. #POD #1 s/p lap-chol. due to gall stone pancreatitis. patient is going home today as per surgeon. will send her home on percocet 6 tabs. with colace. # Migraines: cont home fioricet discharge patient home.
--- NOTE | 2017-04-15 15:00 | DS ---
Physical Exam: SUBJECTIVE: Patient seen and examined Had laparoscopic cholecystectomy yesterday 04/14. Tolerated food this morning, no n/v. Is yet to move her bowels. OBJECTIVE: Vital Signs Period Temp Pulse Resp BP Sys/Briggs Pulse Ox Last 24 Hr 97.6 F-98.5 F 63-104 16-20 118-154/55-89 96-100 PHYSICAL EXAM GENERAL: The patient is awake, alert, and fully oriented, in no obvious painful distress. EYES: sclera anicteric, conjunctiva clear. ENT: moist mucous membranes. LUNGS: Breath sounds equal, clear to auscultation bilaterally, no wheezes, no crackles, no accessory muscle use. HEART: Regular rate and rhythm, S1, S2, systolic murmur RLSB grade 2/6, diastolic murmur LUSB 3/6, no rub or gallop. ABDOMEN: Normoactive bowel sounds, nondistended, Soft, mild abdominal tenderness over dressed surgical wound puncture sites in epigastrium, R flank and infraumbilical region, no guarding, no rebound EXTREMITIES: 2+ pulses, warm, well-perfused, no edema. NEUROLOGICAL: Cranial nerves II through XII grossly intact. Normal speech, gait not observed. PSYCH: Normal mood, normal affect. LABS Laboratory Results - last 24 hr 04/14/17 04/15/17 04/15/17 06:20 08:15 08:15 WBC 8.2 D RBC 3.54 L Hgb 9.9 L Hct 30.9 L MCV 87.3 MCH 28.0 MCHC 32.1 RDW 19.8 H Plt Count 410 MPV 6.9 L Neutrophils % 58.6 D Lymphocytes % 30.3 D Monocytes % 9.4 Eosinophils % 1.1 Basophils % 0.6 Sodium 140 Potassium 3.4 L Chloride 102 Carbon Dioxide 32 Anion Gap 6 L BUN 2 L* D Creatinine 0.4 L Creat Clearance w eGFR Random Glucose 89 Calcium 10.5 H Phosphorus 2.5 Magnesium 1.6 L Total Bilirubin Direct Bilirubin AST ALT Alkaline Phosphatase Total Protein Albumin PTH Intact 103 H 04/15/17 04/15/17 10:00 10:00 WBC RBC Hgb Hct MCV MCH MCHC RDW Plt Count MPV Neutrophils % Lymphocytes % Monocytes % Eosinophils % Basophils % Sodium 141 Potassium 3.5 Chloride 103 Carbon Dioxide 30 Anion Gap 8 BUN 2 L* Creatinine 0.4 L Creat Clearance w eGFR > 60 Random Glucose 88 Calcium 10.7 H Phosphorus Magnesium Total Bilirubin 0.2 D Cancelled Direct Bilirubin < 0.1 Cancelled AST 25 D Cancelled ALT 22 D Cancelled Alkaline Phosphatase 136 H Cancelled Total Protein 6.6 Cancelled Albumin 3.1 L Cancelled PTH Intact HOSPITAL COURSE: Date of Admission:04/09/17 Date of Discharge: 04/15/17 46F w/ hx of cholelithiasis, migraines, esophagitis, and recent admission for a rule/out cholecystitis who presented with abdominal pain, was found to have acute gallstone pancreatitis. S/p laparoscopic cholecystectomy on 04/14/17 #Acute gallstone pancreatitis s/p laparoscopic cholecystectomy 04/14/17 -tolerating soft low fat diet well, no nausea or vomiting -continue pain control with percocet 5 -Follow up with surgeon-Dr Aguilera in one week as an outpatient #migraines -continue fioricet #Elevated ALP -likely due to gallstone pancreatitis -still dropped today from 166 -136 #Hypercalcemia -calcium of 10.5 with albumin of 3.1 -phosphate of 2.3 -possibly 2/2 hyperparathyroidism -PTH- 103 #Tachycardia: resolved 86/min today -likely 2/2 headache and abdominal pain -monitor #constipation -continue colace 100 tid -monitor #Murmur -echo: trace MR and TR -f/u cardiology as outpt Minutes to complete discharge: 42 Discharge Summary Reason For Visit: ACUTE GALLSTONE PANCREATITIS Current Active Problems Acute gallstone pancreatitis (Acute) Cholelith (Acute) Constipation (Acute) Epigastric abdominal tenderness (Acute) Gall stone pancreatitis (Acute) Hypercalcemia (Acute) Migraine (Acute) Headache (Chronic) Condition: Improved - Instructions Diet, Activity, Other Instructions: You were admitted with acute gallstone pancreatitis. You had laparoscopic surgery to remove stones from your gall bladder Please continue on low fat diet. Please see your surgeon in one week to follow up Please see your PCP - Dr Topher Merrill in one week to follow up If you have chills, fever or your pain is worsening, please go to your primary care doctor or go to the nearest emergency room please continue with all your home medications Referrals: Kalia Henson [Staff Physician] - 1 Week (Please follow up with your surgeon in a wek's time) Disposition: HOME - Home Medications Comprehensive Discharge Medication List: Ambulatory Orders Pantoprazole Sodium [Protonix -] 40 mg PO DAILY #30 cap 04/03/17 Acetaminophen/Caffeine/Butalb [Fioricet -] 1 tab PO Q6H 04/10/17 Docusate Sodium [Colace -] 100 mg PO TID PRN #90 tab 04/15/17 Oxycodone HCl [Roxicodone -] 5 mg PO Q12H PRN #6 tablet MDD 2 04/15/17 This patient is new to me today: Yes Date on this admission: 04/15/17 Emergency Visit: Yes ED Registration Date: 04/09/17 Care time: The patient presented to the Emergency Department on the above date and was hospitalized for further evaluation of their emergent condition. Critical Care patient: No - Discharge Referral Referred to [facility] No
--- NOTE | 2017-04-19 12:12 | PATH ---
Surgical Pathology Report Patient Name: RITA GONZALEZ [facility]. Rec. #: [id number] /Age/Gender: 1970 (Age: 46) / F Account: [id number] Location: [address] [place] [address]/[facility] Taken: 04/14/2017 Received: 04/15/2017 Reported: 04/19/2017 Physicians: John Francis M.D. Specimen(s) Received GALLBLADDER Clinical History Acute gallstone Final Diagnosis GALLBLADDER, CHOLECYSTECTOMY: CHRONIC CHOLECYSTITIS AND CHOLELITHIASIS. Electronically Signed Topher Frost M.D. Gross Description Received in formalin, labeled "gallbladder," is a 8.0 x 3.0 x 2.8 cm. gallbladder with a 0.2 cm. in length portion of cystic duct attached. The outer surface is cobos-green and varies from smooth to shaggy. The lumen contains green, tenacious bile as well as 2 yellow, spherical, bosselated choleliths averaging 1.0 cm in greatest dimension. The mucosa is dark green and velvety. The wall of the gallbladder measures 0.1 cm. in thickness. Home Improvement Advisor sections are submitted in one cassette. 04/16/2017 [facility]04/16/2017
== END 2017-04-15 15:04 | disposition home or self-care (01) | DRG 263 ==
LOC: JER 11:12 → JERBED 15:16 → J6S 17:40
PROVIDERS: ADMIT Internal Medicine; ATTEND Internal Medicine
PROC: 0FT44ZZ Resection of Gallbladder, Percutaneous Endoscopic Approach (ICD-10-PCS; principal; 2017-04-14 14:00)
DX: K85.10 Biliary acute pancreatitis without necrosis or infection (principal); E83.52 Hypercalcemia; I36.1 Nonrheumatic tricuspid (valve) insufficiency; I34.0 Nonrheumatic mitral (valve) insufficiency; K80.80 Other cholelithiasis without obstruction; R11.10 Vomiting, unspecified; K59.00 Constipation, unspecified; G43.909 Migraine, unspecified, not intractable, without status migrainosus; E87.6 Hypokalemia; R00.0 Tachycardia, unspecified; K29.70 Gastritis, unspecified, without bleeding; K20.9 Esophagitis, unspecified; R01.1 Cardiac murmur, unspecified; M79.671 Pain in right foot
CPT/HCPCS: 36415; 71010-TC; 74181-TC; 76705-TC; 80048; 80053; 80076; 82150; 82977; 83690; 83735; 83970; 84100; 84132; 84703; 85025; 85027; 85610; 85730; 86850; 86900; 86901; 88304-TC; 93005; 93010; 93306-TC; 94010; 94760; 99283-25